=== PATIENT | female | born 1960 | race Caucasian/White ===

== ENCOUNTER 2016-12-28 09:52 | Observation (INO) | payer OTHER ==
[~2016-12-28] VITALS: Ht 160 cm; Wt 62.0 kg
[~2016-12-28 09:52] MED LIST: ACYC200C66 PO; ATOR20TA15 PO; CALC1TAB87 PO; DABR75CA PO; HYDR-3516 PO; LIDO1SOL8 SWISH-SPIT; MUCI600T PO; MULT1TAB84 PO; OMEP20CA2 PO; REST15CA PO; SCOP1PAT2 TD; TRAM0.5T PO; ZOLO50TA PO
[2016-12-28 09:57] VITALS: BP 161/98; PULSE 75; RESP 18; TEMP 97.4; O2SAT 96
[2016-12-28 10:29] LABS: AUTOMATED NEUTROPHIL # 2.7 TH/MM3 (1.8-7.7); BASOPHIL % 0.6 % (0.0-2.0); EOSINOPHIL # 0.4 TH/MM3 (0-0.4); EOSINOPHIL % 7.7 % (0.0-4.0); HEMATOCRIT 41.3 % (35.0-46.0); HEMO FLAGS DIFF FINAL; LYMPHOCYTE # 1.3 TH/MM3 (1.0-4.8); MEAN CELL VOLUME 91.9 FL (80.0-100.0); MEAN CORPUSCULAR HEMOGLOBIN 31.2 PG (27.0-34.0); MEAN CORPUSCULAR HGB CONC 33.9 % (32.0-36.0); MONO % 9.8 % (0.0-8.0); NEUT % 55.9 % (16.0-70.0); PLATELET COUNT 227 TH/MM3 (150-450); RED BLOOD COUNT 4.49 MIL/MM3 (4.00-5.30); RED CELL DISTRIBUTION WIDTH 16.2 % (11.6-17.2); WHITE BLOOD COUNT 4.9 TH/MM3 (4.0-11.0)
[2016-12-28 10:41] LABS: APTT (PATIENT) 23.9 SEC (24.3-30.1); PROTHROMBIN TIME - PATIENT 11.4 SEC (9.8-11.6)
[2016-12-28 10:48] LABS: BICARBONATE 27.4 MEQ/L (21.0-32.0); POTASSIUM 3.6 MEQ/L (3.5-5.1)
--- NOTE | 2016-12-28 11:47 | RADRPT ---
EXAM DATE/TIME: 12/28/2016 10:29 [facility] COMPARISON: CHEST SINGLE AP, October 08, 2016, 9:04. INDICATIONS : Chest pain. MEDICAL HISTORY : Carcinoma, bone. SURGICAL HISTORY : Infusaport ENCOUNTER: Initial ACUITY: 1 day PAIN SCORE: 4/10 LOCATION: Left chest FINDINGS: A single view of the chest demonstrates Soowwg-b-Cqht fractured proximally with distal fragment possi melvi projected over heart. This could be confirmed with a lateral view. No effusion. No pneumothorax. Overall heart size within normal limits. CONCLUSION: 1. Vekoka-c-Pdrv is fractured proximally and distal fragment may have embolized the heart. This is po sean visualized on this AP view. Recommend lateral view of the chest. Mild basilar atelectasis. Ady Jama MD on December 28, 2016 at 11:42 Board Certified Radiologist. This report was verified electronically.
[2016-12-28] MEDS ORDERED: TRAM0.5T PO (11:56)
[2016-12-28] MEDS ORDERED: VITA500T PO (11:59)
[2016-12-28] MEDS ORDERED: FISH100020 PO (11:59)
[2016-12-28] MEDS ORDERED: COQ-100C2 PO (12:05)
[2016-12-28] MEDS ORDERED: VITA100018 PO (12:05)
[2016-12-28] MEDS ORDERED: GUMMCHW PO (12:07)
--- NOTE | 2016-12-28 12:18 | PD ---
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 Since she first felt like she couldn't move her tongue to the left side but then felt like she had slurred speech facial droop and some unusual tingling paresthesias and pain on the left side of the face. She is worried she may have had a stroke. She's never had similar symptoms. Denies any symptoms in the arms or legs. She has no known brain metastatic disease. History Past Medical History Narrative Medical Stage IV melanoma with bony metastatic disease, on immunotherapy Menopausal: Yes Social History Alcohol Use: No Tobacco Use: No Allergies-Medications (Allergen,Severity, Reaction): Coded Allergies: Alcohol (Verified Allergy, Severe, CANT BREATHE, 09/27/16) RUBBING ALCOHOL,,DRINKS ALCOHOL WITHOUT DIFFICULTLY Cultivated Oat Pollen (Verified Allergy, Unknown, 09/27/16) Uncoded Allergies: PLAIN WATER (Allergy, Severe, SEVERE NAUSEA AND VOMITING , 08/11/11) SURGICAL TAPE (Allergy, Severe, REDNESS AND INFECTION , 08/11/11) Reported Meds & Prescriptions Reported Meds & Active Scripts Active Tafinlar (Dabrafenib) 75 Mg Cap 150 Mg PO BID 30 Days Reported Coenzyme Q10 (Ubidecarenone) 10 Mg Cap 10 Mg PO DAILY [id number] (Ascorbic Acid) 1,000 Mg Tab 1,000 Mg PO DAILY Gummi Bear Multivitamin/M (Pediatric Multiple Vitamin W/) 1 Chw Chw 1 Chew PO DAILY Vitamin D3 (Cholecalciferol) 1,000 Unit Tab 1,000 Units PO DAILY Fish Oil 1000 mg ([place]-3 Fatty Acids) 1 Cap Cap 1,000 Mg PO DAILY Mekinist (Trametinib) 0.5 Mg Tab 2 Mg PO DAILY Calcium 600 with Vitamin D (Calcium Carbonate-Cholecalciferol) 600-400 mg-Unit Tab 1 Tab PO BID Review of Systems Except as stated in HPI: all other systems reviewed are Neg Physical Exam Narrative GENERAL: Well-appearing 56 year-old woman, no acute distress. SKIN: Warm and dry. HEAD: Atraumatic. Normocephalic. NECK: Trachea midline. No JVD. CARDIOVASCULAR: Regular rate and rhythm. No murmur appreciated. RESPIRATORY: No accessory muscle use. Clear to auscultation. Breath sounds equal bilaterally. GASTROINTESTINAL: Abdomen soft, non-tender, nondistended. Hepatic and splenic margins not palpable. MUSCULOSKELETAL: No obvious deformities. No clubbing. No cyanosis. No edema. NEUROLOGICAL: Awake and alert. Cranial nerve exam reveals a little bit of left- sided facial asymmetry with flattening of the nasolabial fold and a little bit of drop in the angle of the mouth. This disappears with intentional smile. She also has maybe a little bit of weakness in pushing the left tongue and cheek , his speech being just a little bit slurred. Strength is full and equal in the upper and lower extremities. Normal. Jtkg-un-bovm. No sensory changes. PSYCHIATRIC: Appropriate mood and affect; insight and judgment normal. Data Data Last Documented VS Vital Signs Date Time Temp Pulse Resp B/P Pulse Ox O2 Delivery O2 Flow Rate FiO2 12/28/16 18:00 63 18 172/80 94 Room Air 12/28/16 09:57 97.4 Orders Electrocardiogram (12/28/16 10:02) Complete Blood Count With Diff (12/28/16 10:02) Basic Metabolic Panel (Bmp) (12/28/16 10:02) Prothrombin Time / Inr (Pt) (12/28/16 10:02) Act Partial Throm Time (Ptt) (12/28/16 10:02) Chest, Single Ap (12/28/16 10:15) Mri Brain W&W/O Contrast (12/28/16 ) Gadodiamide Pf Inj (Omniscan Pf Inj) (12/28/16 15:11) Chest, Pa & Lat (12/28/16 ) Admit Order (Ed Use Only) (12/28/16 ) Invasive Rad Dept Consult (12/28/16 ) Labs Laboratory Tests Test 12/28/16 10:14 White Blood Count 4.9 TH/MM3 Red Blood Count 4.49 MIL/MM3 Hemoglobin 14.0 GM/DL Hematocrit 41.3 % Mean Corpuscular Volume 91.9 FL Mean Corpuscular Hemoglobin 31.2 PG Mean Corpuscular Hemoglobin 33.9 % Concent Red Cell Distribution Width 16.2 % Platelet Count 227 TH/MM3 Mean Platelet Volume 8.1 FL Neutrophils (%) (Auto) 55.9 % Lymphocytes (%) (Auto) 26.0 % Monocytes (%) (Auto) 9.8 % Eosinophils (%) (Auto) 7.7 % Basophils (%) (Auto) 0.6 % Neutrophils # (Auto) 2.7 TH/MM3 Lymphocytes # (Auto) 1.3 TH/MM3 Monocytes # (Auto) 0.5 TH/MM3 Eosinophils # (Auto) 0.4 TH/MM3 Basophils # (Auto) 0.0 TH/MM3 CBC Comment DIFF FINAL Differential Comment Prothrombin Time 11.4 SEC Prothromb Time International 1.0 RATIO Ratio Activated Partial 23.9 SEC Thromboplast Time Sodium Level 140 MEQ/L Potassium Level 3.6 MEQ/L Chloride Level 104 MEQ/L Carbon Dioxide Level 27.4 MEQ/L Anion Gap 9 MEQ/L Blood Urea Nitrogen 11 MG/DL Creatinine 0.61 MG/DL Estimat Glomerular Filtration 101 ML/MIN Rate Random Glucose 126 MG/DL Calcium Level 8.9 MG/DL [facility] Medical Decision Making Medical Screen Exam Complete: Yes Emergency Medical Condition: Yes Interpretation(s) My review of EKG: Normal sinus rhythm at a rate of 70, normal axis, normal vitals, no definite evidence of acute ischemia. LABS: CBC unremarkable. BMP unremarkable. Coags unremarkable Chest x-ray: Hueqvx-r-Gtnb is fractured proximally and distal fragment may have embolized to the heart. Poorly visualized on AP view. Recommend lateral view of the chest. Differential Diagnosis Stroke, tumor, bleed, seizure, other Narrative Course Medical decision making INITIAL: Is a 56 year-old woman presents to the emergency department with strokelike symptoms and a history of metastatic melanoma concerning for tumor bleed or stroke. We'll check labs, MRI, reassess. 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 Likely responsible for her symptoms. Discussed with Dr. Bowden, he will see her in the office within one week. Also with evidence of Zfgdib-j-Fwvg fracture. There able to access the port today with, but it flush with difficulty and she had pain with flushing and so further temps were discontinued. We will get AP and lateral chest x-ray, reassess. 6:50 PM: Chest x-ray confirms that the Pvkvdg-l-Icya is fractured and the displaced distal segment appears to be in the right ventricle extending into the right ventricular outflow tract. We'll plan on admission, consult IR. Spoke with Dr. Bearden, may need to be removed. Prefer to do it when CT surgery is in house. If she is asymptomatic may consider not removing it. Spoke with Dr. Kirkpatrick, will admit patient. James Caban MD Dec 28, 2016 12:18
[2016-12-28] MEDS ORDERED: ASCO10002 PO (12:26)
[2016-12-28] MEDS ORDERED: [UNRECOGNIZED DRUG - CODE] PO (12:26)
--- NOTE | 2016-12-28 14:56 | RADRPT ---
EXAM DATE/TIME: 12/28/2016 14:10 [facility] COMPARISON: No previous studies available for comparison. INDICATIONS : Metastatic disease. History of melanoma. Left sided facial numbness/slurred speech. CONTRAST: 12 cc Omniscan (gadodiamide) IV MEDICAL HISTORY : Metastatic, bone. Hypercholesterolemia. Melanoma. SURGICAL HISTORY : None. ENCOUNTER: Initial ACUITY: 2 day PAIN SCORE: 0/10 LOCATION: head TECHNIQUE: Multiplanar, multisequence MRI of the brain was performed both prior to and following the administrat ion of paramagnetic contrast. FINDINGS: There is widespread abnormal thickening and enhancement of the leptomeninges, most severe on the left side. This does not result in a significant mass effect or midline shift. No abnormal signal on diff usion-weighted images to suggest recent infarction. There is also some involvement of the posterior f marv. The susceptibility weighted images demonstrate abnormal signal in the leptomeninges as well. There is no hydrocephalus and no abnormal extra-axial fluid collections. CONCLUSION: 1. Diffuse abnormal thickening and abnormal enhancement of the leptomeninges most characteristic of l eptomeningeal spread of melanoma, given the history of melanoma. Findings are worse on the left side and there is also involvement of the posterior fossa. No recent infarct identified. Ady Jama MD on December 28, 2016 at 14:46 Board Certified Radiologist. This report was verified electronically.
[2016-12-28 14:59] VITALS: BP 176/101; PULSE 57; RESP 21; O2SAT 95
[2016-12-28] MEDS ORDERED: GADODIAMIDE PF 287 MG/ML 5 ML VIAL (for RAD MRI) IV ONE (15:11)
[2016-12-28 17:00] VITALS: BP 145/83; PULSE 56; RESP 17; O2SAT 94
--- NOTE | 2016-12-28 17:35 | RADRPT ---
EXAM DATE/TIME: 12/28/2016 17:14 [facility] COMPARISON: CT PULMONARY ANGIOGRAM, October 10, 2016, 15:02. CHEST SINGLE AP, December 28, 2016, 10:29. CHEST PA & LAT, October 03, 2016, 8:25. INDICATIONS : Evaluate for infusaport fracture per order. MEDICAL HISTORY : Carcinoma, bone. SURGICAL HISTORY : Infusaport ENCOUNTER: Subsequent ACUITY: 1 day PAIN SCORE: 0/10 LOCATION: chest FINDINGS: The cardiac silhouette is normal in transverse diameter. The lungs are free of acute parenchymal opac ity. No effusions are identified. The fractured Ksmzfa-n-Kttr is again identified unchanged in positi on with the proximal portion in the right ventricle and the distal portion in the pulmonary outflow t ract. CONCLUSION: 1. No acute cardiopulmonary disease. 2. Fractured Riwpob-t-Imkd unchanged in position as above. Solitario Bearden MD on December 28, 2016 at 17:30 Board Certified Radiologist. This report was verified electronically.
[2016-12-28 18:00] VITALS: BP 172/80; PULSE 63; RESP 18; O2SAT 94
[2016-12-28] MEDS ORDERED: ONDANSETRON HCL 4 MG/2 ML VIAL IV ONE (18:15)
[2016-12-28] MEDS ORDERED: ONDANSETRON ODT 4 MG TAB PO ONE (18:30)
[2016-12-28 19:15] VITALS: BP 129/88; PULSE 60; RESP 18
[2016-12-28] MEDS: SODIUM CHLOR 0.45% 1000 ML INJ 1,000 ML IV SCH (20:00)
[2016-12-28] MEDS ORDERED: ONDANSETRON HCL 4 MG/2 ML VIAL IVP PRN (20:00)
[2016-12-28] MEDS ORDERED: SODIUM CHLORIDE 0.9% FLUSH 5 ML FLUSH FLUSH PRN (20:00)
[2016-12-28] MEDS ORDERED: MORPHINE SULFATE 4 MG/ML INJ IV PRN (20:00)
[2016-12-28] MEDS ORDERED: BISACODYL 10 MG SUPP PR PRN (20:00)
[2016-12-28] MEDS ORDERED: NALOXONE HCL 0.4 MG/ML AMP IV PRN (20:00)
[2016-12-28 21:00] VITALS: BP 138/92; PULSE 68
[2016-12-28] MEDS: CALCIUM/VITAMIN D 250 MG/125 U TAB PO SCH (21:00)
[2016-12-28] MEDS: SODIUM CHLORIDE 0.9% FLUSH 5 ML FLUSH FLUSH SCH ×2 (21:00→22:44)
[2016-12-28] MEDS ORDERED: DABRAFENIB PO SCH (21:00)
--- NOTE | 2016-12-28 23:08 | HHI.HP ---
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 Since she first felt like she couldn't move her tongue to the left side but then felt like she had slurred speech facial droop and some unusual tingling paresthesias and pain on the left side of the face. Patient had MRI which was consistent with melanoma spread also had chest xray which showed her port for chemo fractured and may be involving rt ventricle and will be admitted to observation with consult to interventional radiology and oncology. Review of Systems Neurologic: COMPLAINS OF: Headache, Paresthesias, Speech Problems Past Family Social History Past Medical History metastatic melanoma ,on chemotherapy Reported Medications Tafinlar (Dabrafenib) 75 Mg Cap 150 Mg PO BID 30 Days Reported Coenzyme Q10 (Ubidecarenone) 10 Mg Cap 10 Mg PO DAILY [id number] (Ascorbic Acid) 1,000 Mg Tab 1,000 Mg PO DAILY Gummi Bear Multivitamin/M (Pediatric Multiple Vitamin W/) 1 Chw Chw 1 Chew PO DAILY Vitamin D3 (Cholecalciferol) 1,000 Unit Tab 1,000 Units PO DAILY Fish Oil 1000 mg ([place]-3 Fatty Acids) 1 Cap Cap 1,000 Mg PO DAILY Mekinist (Trametinib) 0.5 Mg Tab 2 Mg PO DAILY Calcium 600 with Vitamin D (Calcium Carbonate-Cholec Allergies: Coded Allergies: Alcohol (Verified Allergy, Severe, CANT BREATHE, 09/27/16) RUBBING ALCOHOL,,DRINKS ALCOHOL WITHOUT DIFFICULTLY Cultivated Oat Pollen (Verified Allergy, Unknown, 09/27/16) Uncoded Allergies: PLAIN WATER (Allergy, Severe, SEVERE NAUSEA AND VOMITING , 08/11/11) SURGICAL TAPE (Allergy, Severe, REDNESS AND INFECTION , 08/11/11) Social History current NS,ND Physical Exam Vital Signs Vital Signs Date Time Temp Pulse Resp B/P Pulse Ox O2 Delivery O2 Flow Rate FiO2 12/28/16 19:30 Room Air 12/28/16 18:00 63 18 172/80 94 Room Air 12/28/16 17:00 56 17 145/83 94 12/28/16 14:59 57 21 176/101 95 Room Air 12/28/16 11:05 18 Room Air 12/28/16 09:57 97.4 75 18 161/98 96 Physical Exam GENERAL: This is a well-nourished, well-developed patient, in no apparent distress. SKIN: No rashes, ecchymoses or lesions. Cool and dry. HEAD: Atraumatic. Normocephalic. No temporal or scalp tenderness. EYES: Pupils equal round and reactive. Extraocular motions intact. No scleral icterus. No injection or drainage. ENT: Nose without bleeding, purulent drainage or septal hematoma. Throat without erythema, tonsillar hypertrophy or exudate. Uvula midline. Airway patent. NECK: Trachea midline. No JVD or lymphadenopathy. Supple, nontender, no meningeal signs. CARDIOVASCULAR: Regular rate and rhythm without murmurs, gallops, or rubs. RESPIRATORY: Clear to auscultation. Breath sounds equal bilaterally. No wheezes , rales, or rhonchi. GASTROINTESTINAL: Abdomen soft, non-tender, nondistended. No hepato-splenomegaly , or palpable masses. No guarding. MUSCULOSKELETAL: Extremities without clubbing, cyanosis, or edema. No joint tenderness, effusion, or edema noted. No calf tenderness. Negative Homans sign bilaterally. NEUROLOGICAL: Awake and alert. Cranial nerves II through XII intact. Motor and sensory grossly within normal limits. Five out of 5 muscle strength in all muscle groups. Normal speech. Laboratory Laboratory Tests Test 12/28/16 10:14 White Blood Count 4.9 Red Blood Count 4.49 Hemoglobin 14.0 Hematocrit 41.3 Mean Corpuscular Volume 91.9 Mean Corpuscular Hemoglobin 31.2 Mean Corpuscular Hemoglobin 33.9 Concent Red Cell Distribution Width 16.2 Platelet Count 227 Mean Platelet Volume 8.1 Neutrophils (%) (Auto) 55.9 Lymphocytes (%) (Auto) 26.0 Monocytes (%) (Auto) 9.8 Eosinophils (%) (Auto) 7.7 Basophils (%) (Auto) 0.6 Neutrophils # (Auto) 2.7 Lymphocytes # (Auto) 1.3 Monocytes # (Auto) 0.5 Eosinophils # (Auto) 0.4 Basophils # (Auto) 0.0 CBC Comment DIFF FINAL Differential Comment Prothrombin Time 11.4 Prothromb Time International 1.0 Ratio Activated Partial 23.9 Thromboplast Time Sodium Level 140 Potassium Level 3.6 Chloride Level 104 Carbon Dioxide Level 27.4 Anion Gap 9 Blood Urea Nitrogen 11 Creatinine 0.61 Estimat Glomerular Filtration 101 Rate Random Glucose 126 Calcium Level 8.9 Result Diagram: 12/28/16 1014 12/28/16 1014 Imaging Last 24 hours Impressions Chest X-Ray 12/28/16 1015 Signed Impressions: Service Date/Time: Wednesday, December 28, 2016 10:29 - CONCLUSION: 1. Znvqlr-e-Zzkc is fractured proximally and distal fragment may have embolized the heart. This is poorly visualized on this AP view. Recommend lateral view of the chest. Mild basilar atelectasis. Ady Jama MD Chest X-Ray 12/28/16 0000 Signed Impressions: Service Date/Time: Wednesday, December 28, 2016 17:14 - CONCLUSION: 1. No acute cardiopulmonary disease. 2. Fractured Aludip-h-Yudo unchanged in position as above. Solitario Bearden MD Brain MRI 12/28/16 0000 Signed Impressions: Service Date/Time: Wednesday, December 28, 2016 14:10 - CONCLUSION: 1. 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 Findings are worse on the left side and there is also involvement of the posterior fossa. No recent infarct identified. 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 Likely responsible for her symptoms. Discussed with Dr. Bowden, he will see her in the office within one week. Also with evidence of Oxfwea-l-Tpoz fracture. There able to access the port today with, but it flush with difficulty and she had pain with flushing and so further temps were discontinued. 6:50 PM: Chest x-ray confirms that the Wfiftv-c-Bnlu is fractured and the displaced distal segment appears to be in the right ventricle extending into the right ventricular outflow tract. W Consult IR. ER Spoke with Dr. Bearden , may need to be removed. Prefer to do it when CT surgery is in house. If she is asymptomatic may consider not removing it. Code Status full Discussed Condition With patient Zac Kirkpatrick MD Dec 28, 2016 23:08
[2016-12-29] VITALS (7 sets, daily range): BP systolic 142–181; BP diastolic 78–99; PULSE 58–102; RESP 14–18; TEMP 97.4–98.7; O2SAT 94–99
[2016-12-29] MEDS ORDERED: TRAMETINIB PO SCH (09:00)
[2016-12-29] MEDS: CALCIUM/VITAMIN D 250 MG/125 U TAB PO SCH ×2 (09:00→23:41)
[2016-12-29] MEDS: ASCORBIC ACID 500 MG TAB PO SCH (09:00)
[2016-12-29] MEDS ORDERED: COENZYME Q10 10 MG PO SCH (09:00)
[2016-12-29] MEDS: CHOLECALCIFEROL (VIT D3) 1000 UNIT TAB PO SCH (09:00)
[2016-12-29] MEDS ORDERED: [UNRECOGNIZED DRUG - OTHER] PO SCH (09:00)
[2016-12-29] MEDS ORDERED: NON-FORMULARY DRUG (Omega-3 Fatty Acids (Fish Oil 1000 mg) 1,000 MG) PO SCH (09:00)
[2016-12-29] MEDS: SODIUM CHLOR 0.45% 1000 ML INJ 1,000 ML IV SCH ×2 (09:20→22:40)
[2016-12-29] MEDS: SODIUM CHLORIDE 0.9% FLUSH 5 ML FLUSH FLUSH SCH ×2 (09:46→21:00)
--- NOTE | 2016-12-29 11:19 | HHI.PR ---
Subjective Remarks Pt presented with c/o left sided facial abnormalities. MRI brain (12/29/16) leptomeningeal spread of melanoma. XR showed fractured port with distal fractured piece in right heart outflow tract. Pt denies chest pain or palpitations. Objective Vitals Vital Signs Date Time Temp Pulse Resp B/P Pulse Ox O2 Delivery O2 Flow Rate FiO2 12/29/16 07:38 97.4 71 16 162/97 96 12/29/16 05:16 102 18 146/78 99 Room Air 12/29/16 03:52 58 18 158/78 94 Room Air 12/29/16 00:50 89 18 156/99 95 Room Air 12/28/16 21:00 68 138/92 Room Air 12/28/16 19:30 Room Air 12/28/16 19:15 60 18 129/88 Room Air 12/28/16 18:00 63 18 172/80 94 Room Air 12/28/16 17:00 56 17 145/83 94 12/28/16 14:59 57 21 176/101 95 Room Air 12/28/16 12/28/16 12/29/16 14:59 22:59 06:59 Intake Total 240 ml Balance 240 ml Intake Oral 240 ml # Voids 1 Result Diagram: 12/28/16 1014 12/28/16 1014 Imaging Last Impressions Chest X-Ray 12/28/16 1015 Signed Impressions: Service Date/Time: Wednesday, December 28, 2016 10:29 - CONCLUSION: 1. Xqbcwq-s-Zfsu is fractured proximally and distal fragment may have embolized the heart. This is poorly visualized on this AP view. Recommend lateral view of the chest. Mild basilar atelectasis. Ady Jama MD Brain MRI 12/28/16 0000 Signed Impressions: Service Date/Time: Wednesday, December 28, 2016 14:10 - CONCLUSION: 1. 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 Findings are worse on the left side and there is also involvement of the posterior fossa. No recent infarct identified. Ady Jama MD Objective Remarks GENERAL: This is a well-nourished, well-developed patient, in no apparent distress. CARDIOVASCULAR: Regular rate and rhythm without murmurs, gallops, or rubs. RESPIRATORY: Clear to auscultation. Breath sounds equal bilaterally. No wheezes , rales, or rhonchi. GASTROINTESTINAL: Abdomen soft, non-tender, nondistended. Normal active bowel sounds MUSCULOSKELETAL: Extremities without clubbing, cyanosis, or edema. NEURO: Alert & Oriented x4 to person, place, time, situation. Moves all ext x4 A/P Problem List: (1) Metastatic melanoma Status: Chronic Plan: - MRI brain (12/28/16) --> leptomeningeal spread of melanoma - consult placed to Oncology - will d/w Dr. Joy (2) Displacement of infusion catheter Status: Acute Plan: - distal portion of the infusaport is fractured in located in the right heart outflow tract - I reviewed the pt's telemetry which showed only 1 episode of NSVT overnight, otherwise occasional PVC, predominant rhythm was NSR - will ask Cardiology to Consult - Dr. Pacheco and I have reviewed the case and given pt's advanced metastatic melanoma and lack of findings on telemetry, pt would NOT benefit from risk of trying to retrieve fractured section of her infusaport Problem Qualifiers (1) Displacement of infusion catheter: Qualified Code: T82.524A - Displacement of infusion catheter, initial encounter Jordan Sommer DO Dec 29, 2016 11:19
--- NOTE | 2016-12-29 12:31 | MB ---
cc: JEYSON ANGLIN DATE OF CONSULTATION 12/29/2016 INDICATION Right ventricular mass. HISTORY OF PRESENT ILLNESS A 56-year-old female with advanced Stage IV metastatic melanoma. She has been undergoing chemotherapy, has a left subclavian Joaipa-T-Ozpu. She presented with symptoms of slurred speech and unusual paresthesias on the left side of her face. MRI of the brain did show melanoma spread. She also had an x-ray at that point which showed that her Proymt-K-Ltad had fractured and the port was now in the right ventricular outflow tract. Symptomatically she has not had any heart related complaints. No palpitations, chest pain or shortness of breath. We are consulted for further recommendations. PAST MEDICAL HISTORY Metastatic melanoma on chemotherapy. REPORTED MEDICATIONS See med reconciliation. ALLERGIES Alcohol. [place] pollen. SOCIAL HISTORY Jhony any alcohol, tobacco or drug use. FAMILY HISTORY Denies any family history of early coronary artery disease or sudden cardiac . REVIEW OF SYSTEMS A 12-point review of systems is performed. Negative unless otherwise noted in the History Of Present Illness. PHYSICAL EXAMINATION Vital Signs: Temperature 97, pulse 71, blood pressure 162/97 mmHg. General: Alert and oriented x 3, in no acute distress. HEENT: Exam shows pupils reactive to light and accommodation. Extraocular movements are intact. NECK: No elevation or jugular venous distention. No thyromegaly or lymphadenopathy. No carotid bruits. Lungs: Clear to auscultation bilaterally. Cardiovascular Exam: Regular rate and rhythm without murmurs, rubs or gallops. Abdominal Exam: Nontender, nondistended. Good bowel sounds. No hepatosplenomegaly. Extremities: No clubbing, cyanosis or edema. Good peripheral pulses. Neuro: Cranial nerves intact. Motor and sensory grossly intact. LABORATORY DATA Sodium 140, potassium 3.6, BUN is 11, creatinine 0.61, INR is 1. WBC 4.9, hemoglobin 14, platelet count 227. ASSESSMENT 1. Metastatic melanoma. 2. Fractured Sqqbfp-A-Orrg with catheter embolism to the right ventricular outflow tract. 3. Nonsustained ventricular tachycardia. PLAN The patient has advanced metastatic melanoma on chemotherapy. We will wait for any further recommendations from Oncology given the progression. From a cardiac perspective, the Kvihhv-V-Cvaw catheter appears to be partially in the right ventricular outflow tract. The patient is in sinus rhythm, does have on telemetry infrequent ventricular ectopy consisting of couplets, triplets and one short nonsustained run of NSVT, about six beats. Options would include snare and recovery of the Lessvz-Q-Afci versus just watching conservatively. Since there is not much in terms of an arrhythmia burden and given the invasive nature and risks associated with snare recovery, after discussion with Dr. Montemayor, I think it would be best to monitor conservatively. If she has as any further, more considerable runs of ectopy, then we may need to attempt recovery. The Ngwlfz-O-Qnxg is still required. It will have to be exchanged per Interventional Radiology. MD SURYA Rolle/SSB /12:02 PM /12:18 PM
[2016-12-29] MEDS ORDERED: ceFAZolin 2 GM PREMIX 50 ML IV SCH (14:45)
[2016-12-29] MEDS ORDERED: VANCOMYCIN INJ 1,000 MG in SODIUM CHLOR 0.9% 250 ML INJ 250 ML IV SCH (14:45)
[2016-12-30] VITALS (7 sets, daily range): BP systolic 131–153; BP diastolic 80–97; PULSE 63–82; RESP 16–21; TEMP 97–98; O2SAT 93–99
--- NOTE | 2016-12-30 07:13 | EKG ---
Date Performed: 12/28/2016 Time Performed: 10:07:50 PTAGE: 56 years EKG: Sinus rhythm INCOMPLETE RIGHT BUNDLE BRANCH BLOCK BORDERLINE ECG INTERPRETATION BASED ON A DEFAULT AGE OF 38 YEAR S PREVIOUS TRACING : 09/27/2016 17.22 Compared to prior tracing no significant change DOCTOR: Stewart Rivera Interpretating Date/Time 12/30/2016 07:10:17
[2016-12-30] MEDS: CHOLECALCIFEROL (VIT D3) 1000 UNIT TAB PO SCH (09:00)
[2016-12-30] MEDS: SODIUM CHLORIDE 0.9% FLUSH 5 ML FLUSH FLUSH SCH (09:00)
[2016-12-30] MEDS: ASCORBIC ACID 500 MG TAB PO SCH (09:00)
[2016-12-30] MEDS: CALCIUM/VITAMIN D 250 MG/125 U TAB PO SCH (09:00)
--- NOTE | 2016-12-30 09:30 | HHI.PR ---
Subjective Remarks Pt without any specific complaints and is anxious for discharge. Pt still having nausea She is going for port exchange this morning. She does not seem to remember being told about the results of her MRI brain and doesn't seem to fully understand the extend of her metastatic disease. NSR on telemetry overnight. Objective Vitals Vital Signs Date Time Temp Pulse Resp B/P Pulse Ox O2 Delivery O2 Flow Rate FiO2 12/30/16 08:02 97.0 74 18 152/85 94 12/30/16 04:00 98.0 70 21 140/91 98 12/29/16 20:35 98.7 87 18 142/88 98 12/29/16 19:59 61 18 146/93 94 12/29/16 17:44 68 14 181/98 98 Room Air Result Diagram: 12/28/16 1014 12/28/16 1014 Other Results Laboratory Tests Test 12/28/16 10:14 White Blood Count 4.9 TH/MM3 Red Blood Count 4.49 MIL/MM3 Hemoglobin 14.0 GM/DL Hematocrit 41.3 % Mean Corpuscular Volume 91.9 FL Mean Corpuscular Hemoglobin 31.2 PG Mean Corpuscular Hemoglobin 33.9 % Concent Red Cell Distribution Width 16.2 % Platelet Count 227 TH/MM3 Mean Platelet Volume 8.1 FL Neutrophils (%) (Auto) 55.9 % Lymphocytes (%) (Auto) 26.0 % Monocytes (%) (Auto) 9.8 % Eosinophils (%) (Auto) 7.7 % Basophils (%) (Auto) 0.6 % Neutrophils # (Auto) 2.7 TH/MM3 Lymphocytes # (Auto) 1.3 TH/MM3 Monocytes # (Auto) 0.5 TH/MM3 Eosinophils # (Auto) 0.4 TH/MM3 Basophils # (Auto) 0.0 TH/MM3 CBC Comment DIFF FINAL Differential Comment Prothrombin Time 11.4 SEC Prothromb Time International 1.0 RATIO Ratio Activated Partial 23.9 SEC Thromboplast Time Sodium Level 140 MEQ/L Potassium Level 3.6 MEQ/L Chloride Level 104 MEQ/L Carbon Dioxide Level 27.4 MEQ/L Anion Gap 9 MEQ/L Blood Urea Nitrogen 11 MG/DL Creatinine 0.61 MG/DL Estimat Glomerular Filtration 101 ML/MIN Rate Random Glucose 126 MG/DL Calcium Level 8.9 MG/DL Imaging Last Impressions Chest X-Ray 12/28/16 1015 Signed Impressions: Service Date/Time: Wednesday, December 28, 2016 10:29 - CONCLUSION: 1. Vctazz-l-Mivm is fractured proximally and distal fragment may have embolized the heart. This is poorly visualized on this AP view. Recommend lateral view of the chest. Mild basilar atelectasis. Ady Jama MD Brain MRI 12/28/16 0000 Signed Impressions: Service Date/Time: Wednesday, December 28, 2016 14:10 - CONCLUSION: 1. 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 Findings are worse on the left side and there is also involvement of the posterior fossa. No recent infarct identified. Ady Jama MD Objective Remarks General: NAD, AAOx3 Chest: CTA bilaterally Cardiac: Regular Abd: +BS, soft ND/NT Ext: No edema A/P Problem List: (1) Metastatic melanoma Status: Chronic Plan: - Pt has metastatic melanoma stage 4 with mets to bone, liver, lung, soft tissues - Pt admitted with left sided headache, nausea/vomiting. 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 Findings are worse on the left side and there is also involvement of the posterior fossa. - Appreciate Oncology consultation - Pt to have Yizzlj-z-gweo exchanged today by IR - Anticipate discharge to home later today as long as pt is stable after her port exchange. (2) Displacement of infusion catheter Status: Acute Plan: - distal portion of the cqthww-z-ghjz is fractured in located in the right heart outflow tract - Pt's telemetry showed only 1 episode of NSVT overnight on 12/29/16, otherwise occasional PVC, predominant rhythm was NSR - Appreciate Cardiology consultation - Dr. Pacheco and reviewed the case with Dr. Sommer on 12/29/16 and given pt's advanced metastatic melanoma and lack of findings on telemetry, pt would NOT benefit from risk of trying to retrieve fractured section of her lzusap-q-odlk Assessment and Plan Patient examined. Assessment and plan formulated with Kristin Cain PA-C. I agree with the above. Problem Qualifiers (1) Displacement of infusion catheter: Qualified Code: T82.524A - Displacement of infusion catheter, initial encounter Kristin Cain Dec 30, 2016 09:30 Jordan Sommer DO Jan 04, 2017 18:33
[2016-12-30] MEDS ORDERED: ZOFR4TAB3 SL (09:31)
--- NOTE | 2016-12-30 09:32 | HHI.DCPOC ---
Discharge Care Plan Diagnosis: (1) Metastatic melanoma (2) Displacement of infusion catheter (3) Nausea & vomiting Goals to Promote Your Health * To prevent worsening of your condition and complications * To maintain your health at the optimal level Directions to Meet Your Goals Take your medications as prescribed Follow your dietary instruction Follow activity as directed Keep your appointments as scheduled Take your immunizations and boosters as scheduled If your symptoms worsen call your PCP, if no PCP go to Urgent Care Center or Emergency Room Smoking is Dangerous to Your Health. Avoid second hand smoke Call the 24-hour hour crisis hotline for domestic abuse at Kristin Cain Dec 30, 2016 09:32 Jordan Sommer DO Jan 04, 2017 18:34
[2016-12-30] MEDS ORDERED: MIDAZOLAM HCL 5 MG/5 ML VIAL ONE (09:33)
[2016-12-30] MEDS ORDERED: fentaNYL CITRATE 250 MCG/5 ML AMP ONE (09:34)
[2016-12-30] MEDS ORDERED: LIDOCAINE 1%/EPINEPHrine 1:100,000 SOLN 20 ML VIAL ONE ×2 (10:06→10:27)
--- NOTE | 2016-12-30 10:12 | HHI.FF ---
Face to Face Verification Diagnosis: (1) Metastatic melanoma (2) Nausea & vomiting (3) Displacement of infusion catheter Home Health Nursing Order: Medical education Signs/symptoms of disease process Medication education-adverse effect Wound care and dressing changes Nursing assessment with vital signs I have seen patient Cherry Corcoran on 12/30/16. My clinical findings support the need for the requested home health care services because: Deconditioned w/ increased weakness Med compliance is questionable Limited ability to care for self Need for psychosocial assistance I certify that my clinical findings support that this patient is homebound because: Impaired cognitive ability/safety Unsafe to leave home unassisted Need for psychosocial assistance Unable to use public transportation Jordan Sommer DO Dec 30, 2016 10:12
--- NOTE | 2016-12-30 10:25 | HHI.PR ---
Subjective Remarks No new complaints. Objective Vitals Vital Signs Date Time Temp Pulse Resp B/P Pulse Ox O2 Delivery O2 Flow Rate FiO2 12/30/16 08:02 97.0 74 18 152/85 94 12/30/16 04:00 98.0 70 21 140/91 98 12/29/16 20:35 98.7 87 18 142/88 98 12/29/16 19:59 61 18 146/93 94 12/29/16 17:44 68 14 181/98 98 Room Air Result Diagram: 12/28/16 1014 12/28/16 1014 Imaging Last Impressions Chest X-Ray 12/28/16 1015 Signed Impressions: Service Date/Time: Wednesday, December 28, 2016 10:29 - CONCLUSION: 1. Qujfnr-p-Xicv is fractured proximally and distal fragment may have embolized the heart. This is poorly visualized on this AP view. Recommend lateral view of the chest. Mild basilar atelectasis. Ady Jama MD Brain MRI 12/28/16 0000 Signed Impressions: Service Date/Time: Wednesday, December 28, 2016 14:10 - CONCLUSION: 1. 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 Findings are worse on the left side and there is also involvement of the posterior fossa. No recent infarct identified. Ady Jama MD Objective Remarks General: NAD, AAOx3 Chest: CTA bilaterally Cardiac: Regular Abd: +BS, soft ND/NT Ext: No edema A/P Problem List: (1) Metastatic melanoma Status: Chronic Plan: - comgmt with [place] - Pt has metastatic melanoma stage 4 with mets to bone, liver, lung, soft tissues - Pt admitted with left sided headache, nausea/vomiting. 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 Findings are worse on the left side and there is also involvement of the posterior fossa. - Pt underwent infusaport exhanged with IR (12/30/16) - Discharge to home this afternoon - f/u with Oncology in 1 week - Pt's overall prognosis is guarded - Pt does NOT have good insight into her disease process - Pt does NOT want SNF - I have requested that case mgmt arrange [facility] (2) Displacement of infusion catheter Status: Acute Plan: - distal portion of the lbxbbk-c-qibh is fractured in located in the right heart outflow tract - Pt's telemetry showed only 1 episode of NSVT overnight on 12/29/16, otherwise occasional PVC, predominant rhythm was NSR - Appreciate Cardiology consultation - I reviewed the case with Dr. Sommer on 12/29/16 and given pt's advanced metastatic melanoma and lack of findings on telemetry, pt would NOT benefit from risk of trying to retrieve fractured section of her jjcphc-x-zuyn Problem Qualifiers (1) Displacement of infusion catheter: Qualified Code: T82.524A - Displacement of infusion catheter, initial encounter Jrodan Sommer DO Dec 30, 2016 10:25
--- NOTE | 2016-12-30 11:31 | RADRPT ---
EXAM DATE/TIME: 12/30/2016 00:00 [facility] COMPARISON: No previous studies available for comparison. INDICATIONS : Patient presents with fractured port placement in need of removal with replacement for chemotherapy. MEDICAL HISTORY : metastatic melanoma ,on chemotherapy GERD SURGICAL HISTORY : Breast implants D and C x2 ENCOUNTER: Initial ACUITY: 2 days PAIN SCORE: 0/10 LOCATION: N/A SEDATION TIME: 45 minutes 1.) 4 mg midazolam (Versed) IV 2.) 250 mcg fentanyl (Sublimaze) IV Prophylactic antibiotics were administered with appropriate pre-procedure timing. Vancomycin within 2 hrs of procedure, Ancef (or alternative) within 1 hr of procedure. PROCEDURE : 1. Removal of Wvgpll-i-cyne. 2. Conscious sedation with continuous EKG and oximetry monitoring. The risk, benefits and potential complications of Dmngfl-t-Rmxj removal were discussed. Written conse nt was obtained. The patient was placed supine. The chest wall was prepped in sterile fashion. Full sterile techniqu e was used, including cap, mask, sterile gloves and gown, and a large sterile sheet. Hand hygiene an d 2% chlorhexidine and/or Betadine/alcohol prep was utilized per protocol for cutaneous antisepsis. The skin and subcutaneous tissues were infiltrated with local anesthetic solution. A small incision w as made, the subcutaneous pocket was opened. The port was dissected from the subcutaneous tissues and easily removed in one piece. The pocket incision was closed with subcuticular Vicryl suture. Steri -Strips were applied. Conscious sedation was performed with the prescribed dosages and duration as above. The patient tole rated the procedure well and there were no complications. EKG and oximetry remained stable throughou t the procedure. The patient was sent to post anesthesia recovery in stable condition. CONCLUSION: Uncomplicated port removal as above. Solitario Bearden MD on December 30, 2016 at 11:30 Board Certified Radiologist. This report was verified electronically.
--- NOTE | 2016-12-30 11:33 | RADRPT ---
EXAM DATE/TIME: 12/30/2016 09:58 [facility] COMPARISON: No previous studies available for comparison. INDICATIONS : Patient presents with fractured port placement in need of removal with replacement for chemotherapy t reatment.. MEDICAL HISTORY : metastatic melanoma ,on chemotherapy GERD SURGICAL HISTORY : D and C x2 Breast implants Melanoma removed ENCOUNTER: Initial ACUITY: 2 days PAIN SCORE: 0/10 LOCATION: N/A FLUORO TIME: 0.6 minutes SEDATION TIME: 45 minutes ACCESS: Right internal jugular vein SEDATION: 1.) 4 mg midazolam (Versed) IV 2.) 250 mg fentanyl (Sublimaze) IV Prophylactic antibiotics were administered with appropriate pre-procedure timing. Vancomycin within 2 hours of procedure, Ancef (or alternative) within 1 hour of procedure. DEVICE: 1. 8 [place] single lumen Bard Power Port PROCEDURE : 1. Continuous pulse oximetry and EKG monitoring. 2. Intravenous conscious sedation. 3. Ultrasound guidance for venous access. 4. Fluoroscopic guided implantable central venous port placement. The patient was placed supine. The neck was prepped in sterile fashion. Full sterile technique was u sed, including cap, mask, sterile gloves and gown, and a large sterile sheet. Hand hygiene and 2% ch lorhexidine Betadine was utilized per protocol for cutaneous antisepsis with appropriate dry time for site. The skin and subcutaneous tissues were infiltrated with local anesthetic solution. Under direct ultrasound guidance, central venous access was accomplished in the targeted vessel. The ultrasound images depicting access guidance were stored and saved to PACS for permanent record. A s ubcutaneous pocket was created using blunt dissection. The port was introduced to the pocket. The c atheter tubing was fed through a subcutaneous tunnel to the venotomy site. The catheter tubing was c ut to a suitable length and then was introduced through a valved Peel-Away sheath and positioned with catheter tubing tip at the cavo-atrial junction level. The pocket incision was closed with subcutic ular Vicryl suture. Steri-Strips were applied. The port was flushed and locked with heparin solutio n per protocol. Sterile dressing was applied to the site. The patient tolerated the procedure well. Conscious sedation was performed with the prescribed dosages and duration as above. The patient mariaa ated the procedure well and there were no complications. EKG and oximetry remained stable throughout the procedure. The patient was sent to post anesthesia recovery in stable condition. CONCLUSION: Uncomplicated ultrasound and fluoroscopic guided implanted central venous port catheter placement as described in detail above. An 8 [place] Power port was placed. The previously fractured Nixavg-w-Ltbk is noted to be within the right ventricle and out flow tract. No attempt was made of removal. Solitario Bearden MD on December 30, 2016 at 11:31 Board Certified Radiologist. This report was verified electronically.
--- NOTE | 2016-12-30 11:40 | PD.RAD ---
Post Procedure Progress Note Pre Procedure Diagnosis: (1) Metastatic melanoma Post Procedure Diagnosis: (1) Metastatic melanoma Procedure Date: Dec 30, 2016 Supervising Radiologist: Solitario Bearden Proceduralist/Assist: Real Coleman, RT(R), Lena Baltazar RT(R)(CV) Plan of Activity Patient to Unit: Nursing Unit Patient Condition: Good See PACS Report for procedural detail/treatment Central Venous Access Device Procedure 1 Right Internal Jugular Infusaport Placement single lumen Procedure 2 Left Subclavian Infusaport Removal single lumen Solitario Bearden MD Dec 30, 2016 11:40
[2016-12-30] MEDS ORDERED: SODIUM CHLORIDE 0.9% FLUSH 5 ML FLUSH IVF PRN (11:45)
[2016-12-30] MEDS: SODIUM CHLOR 0.45% 1000 ML INJ 1,000 ML IV SCH (12:00)
[2016-12-30] MEDS ORDERED: diphenhydrAMINE HCL 50 MG/ML VIAL ONE (12:27)
--- NOTE | 2017-01-02 12:38 | MB ---
cc: FABIANO CAMACHO M.D. DATE OF CONSULTATION: 01/02/2017 1958 REASON FOR CONSULTATION Initially was a stroke alert but that was likely rescinded due to what appeared to be a patient having active seizure, given Ativan and will be loaded with Dilantin. The patient with a known history of stage IV melanoma with bony mets as well as liver and lung and soft tissue. 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 Apparently, today started having change in mental status, unresponsiveness, was brought in with a right gaze preference, some shaking. Gaze preference is no longer there. She was recently in the radiology department for a port change. She had a right internal jugular Yrvlfv-T-Pnvw placed and the left one removed, this was on December 30. PAST MEDICAL HISTORY As stated. MEDICATION Home medicines: Please refer to EMR, I believe she is on: 1. Tafinlar 75 mg tabs, 150 mg twice a day. 2. She is on Co-Q10. 3. Ascorbic acid. 4. Vitamin D3. 5. Multivitamins. 6. Fish oil. 7. Trametinib 0.5 mg 2 mg daily. 8. Calcium. ALLERGIES RUBBING ALCOHOL, OAT POLLEN, SURGICAL TAPE ___. SOCIAL HISTORY Does not smoke, does not drink. PHYSICAL EXAMINATION VITAL SIGNS: Temperature not taken but pulse is 70, respiratory rate 24. Blood pressure 157/81, sating 96% on 3 liters. NEURO: She is somnolent, making some grunting noises, had a right gaze preference initially, no longer having a gaze preference. Her pupils are midline 2-3 mm reactive. No nystagmus. She does withdraw to painful stimuli in all four extremities, both toes are upgoing. Reflexes are brisk. Does not follow commands. Cannot assess cerebellar or gait. LABORATORY DATA Labs were reviewed. Some are still pending as far as her electrolytes. CBC is really unremarkable. Coag panel PTT 23.9. Urine sent off. IMAGING STUDIES CT head performed without contrast compared to an MRI with and without from 12/28/2016 shows scattered hyperdense foci throughout the left cerebral hemisphere and right occipital region which likely represents previously described leptomeningeal metastatic disease. There is nothing new seen by the radiologist, no shift or bleed. 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 The patient is loaded now with Dilantin 1000 mg. We will continue her Dilantin 100 mg q. 8, check a level, keep her level closer to 15. Maintain seizure precautions. Ativan to be used p.r.n. for witnessed seizure. Will get an EEG and continue current care. I am not sure if her oncologist wants to do any other testing, will defer to oncology. Of note, the patient was not a stroke alert. MD RAMBO Issa/LEO /11:27 AM /12:16 PM
--- NOTE | 2017-01-17 11:12 | MB ---
cc: CJ ROBERT MD DATE OF CONSULTATION 12/29/16 1958 REASON FOR CONSULTATION Patient with metastatic melanoma currently undergoing immunotherapy who presents with new-onset neurological symptoms. CHIEF COMPLAINT Slurred speech and paresthesias on the left side of face. HISTORY OF PRESENT ILLNESS Ms. 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 She has BRAF V600 positive disease. She is currently being treated with Trametinib and Dabrafenib for metastatic melanoma. Based on the most recent PET CT scan, she had good response to the treatment. She recently had disruption of her treatment since she ran out of her medication and had delay in getting a refill. She presents to the emergency department with a [id number] day history of left facial tingling and also difficulty with speech. In the emergency department, an MRI of the brain with contrast was obtained which shows widespread abnormal thickening and enhancement of the leptomeninges. It is more severe on the left side of the brain. There is no mass effect or midline shift. There is also involvement of the posterior fossa. There is a normal signal in the leptomeninges. 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 The patient was admitted to the hospital. She has had chest x-ray which showed a fractured port with distal fracture piece in the right heard outflow tract. She is currently symptomatic from this. Cardiology has seen the patient and they have been recommended conservative management. The patient is currently asymptomatic. She is in sinus rhythm. She does have infrequent ventricular ectopy. I have been consulted to make recommendations in this patient with progressive metastatic melanoma The patient is currently alert and oriented. She does not endorse any new symptoms. She states that the tingling in her left face has resolved. Her speech is clear. She is alert and oriented x3. She does not have any neurological deficits. Her ECOG performance status is in zero. REVIEW OF SYSTEMS A comprehensive 14-point review of systems was completed which is negative except as described in the HPI. PAST MEDICAL HISTORY History of metastatic melanoma. SOCIAL HISTORY She is a nonsmoker. She does not drink alcohol. She lives alone. FAMILY HISTORY Reviewed and it is noncontributory to this admission. MEDICATIONS Reviewed MEDICATIONS Home medications include 1. CoQ 10. 2. Multivitamin 3. Vitamin D3 4. Fish oil 5. Trametinib 6. Dabrafenib ALLERGIES RUBBING ALCOHOL SURGICAL TAPE PHYSICAL EXAMINATION VITAL SIGNS: Blood pressure is 142/88, pulse is in the 80s, temperature 98.7, O2 sats are 98% on room air. GENERAL: Well-developed, well-nourished female in no apparent distress. HEENT: Pupils are equal, round, reactive to light. EOMI. No oral thrush. No oral lesions. NECK: Supple. No JVD, no bruits. No lymphadenopathy. CHEST: Clear to auscultation bilaterally. CARDIAC: S1-S2 regular rate and rhythm. ABDOMEN: Soft, nontender, nondistended. Bowel sounds are present. EXTREMITIES: Without any edema, erythema or cyanosis. SKIN: Without any petechiae, lesion or bruises. NEUROLOGIC: No focal deficits. PSYCHIATRIC: Mood and affect is appropriate. IMAGING STUDIES Imaging was reviewed in the EMR. LABORATORY DATA WBC 4.9, hemoglobin is 14, platelet count is 227. Serum chemistries showed sodium of 140, potassium 3.6, chloride 104, CO2 27.4, BUN is 11, creatinine is 0.61, GFR is 101, glucose is 126. Coags show PT 11.4, INR is 1.0, PTT 23.9. ASSESSMENT/PLAN This is a 56-year-old female with a diagnosis of stage IV melanoma which is the BRAF V600 positive. She is currently on oral biochemical therapy consisting off Dabrafenib and Trametinib. She presents today with new neurological symptoms. 1. 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 This is a poor prognostic seizure in this patient with stage IV melanoma. I had a long conversation with the patient. She is essentially failing BRAF inhibitor therapy at this point. Her performance status is still very good and we will treat her with a second-line therapy in the outpatient setting. She will be treated with immunotherapy drugs as an outpatient. I will discuss this case with radiation oncology, although I believe that the benefit of radiation in this patient with leptomeningeal spread without any significant neurological symptoms is questionable. She has a fractured port and the port is now in the right ventricular outflow tract. Cardiology has recommended conservative management since trying to retrieve the port with a snare, maybe some risky in this patient. She is currently asymptomatic thus I agree with conservative management at this time. She will need a port to receive immunotherapy. We will ask IR to retrieve her current port and replaced with a new port. In order to reassess her disease, I will also obtain a CT of the chest, abdomen and pelvis with contrast. The patient can be discharged home after she has a new port placed and CT imaging has been completed. Thank you for allowing me to participate in the care of this patient. I will continue to follow this patient along. MD ROSA Morris/ /9:05 PM /11:05 AM
== END 2016-12-30 15:01 | disposition home or self-care (01) ==
LOC: NEPE 09:52 → NEDA 18:08 → NEDH 22:13 → NEPGCP 12-29 20:20
PROVIDERS: ADMIT Hospitalist; ATTEND Hospitalist
DX: C78.7 Secondary malignant neoplasm of liver and intrahepatic bile duct (principal); C79.51 Secondary malignant neoplasm of bone; C43.9 Malignant melanoma of skin, unspecified; R56.9 Unspecified convulsions; I47.2 Ventricular tachycardia; I49.3 Ventricular premature depolarization; J98.11 Atelectasis; Z98.82 Breast implant status
CPT/HCPCS: 36561; 36590; 70553; 71010; 71020; 76937; 77001; 80048; 85025; 85610; 85730; 93005; 99152; 99153; 99285; A9579; C1788; G0378; J0690; J1200; J1642; J2250; J2270; J2405; J3010; J3370; J7050

== ENCOUNTER 2017-01-02 10:34 | Inpatient (IN) | payer OTHER ==
[2017-01-02] VITALS (10 sets, daily range): BP systolic 125–183; BP diastolic 62–94; PULSE 70–102; RESP 18–24; O2SAT 94–100
[~2017-01-02 10:34] MED LIST changes: -ACYC200C66 PO; +ASCO10002 PO; -ATOR20TA15 PO; +FISH100020 PO; +GUMMCHW PO; -HYDR-3516 PO; -LIDO1SOL8 SWISH-SPIT; -MUCI600T PO; -MULT1TAB84 PO; -OMEP20CA2 PO; -REST15CA PO; -SCOP1PAT2 TD; +VITA100018 PO; +ZOFR4TAB3 SL; -ZOLO50TA PO; +[UNRECOGNIZED DRUG - CODE] PO
[2017-01-02] MEDS ORDERED: SODIUM CHLOR 0.9% 1000 ML INJ 1,000 ML IV ONE (10:41)
[2017-01-02] MEDS ORDERED: SODIUM CHLORIDE 0.9% FLUSH 5 ML FLUSH IVF PRN (10:45)
[2017-01-02] MEDS ORDERED: LORazepam 2 MG/ML VIAL IVS ONE (10:45)
[2017-01-02] MEDS ORDERED: PHENYTOIN INJ 1,000 MG in SODIUM CHLORIDE 0.9% INJ 100 ML IV ONE (10:45)
[2017-01-02 11:01] LABS: I-STAT POTASSIUM 3.5 MMOL/L (3.5-4.9); I-STAT SODIUM 139 MMOL/L (138-146)
[2017-01-02 11:04] LABS: AUTOMATED NEUTROPHIL # 7.1 TH/MM3 (1.8-7.7); BASOPHIL % 0.2 % (0.0-2.0); EOSINOPHIL # 0.1 TH/MM3 (0-0.4); EOSINOPHIL % 1.1 % (0.0-4.0); HEMATOCRIT 43.5 % (35.0-46.0); HEMO FLAGS DIFF FINAL; LYMPH % 7.6 % (9.0-44.0); LYMPHOCYTE # 0.6 TH/MM3 (1.0-4.8); MEAN CELL VOLUME 92.2 FL (80.0-100.0); MEAN CORPUSCULAR HEMOGLOBIN 31.2 PG (27.0-34.0); MEAN CORPUSCULAR HGB CONC 33.8 % (32.0-36.0); MONO % 7.4 % (0.0-8.0); NEUT % 83.7 % (16.0-70.0); PLATELET COUNT 172 TH/MM3 (150-450); RED BLOOD COUNT 4.71 MIL/MM3 (4.00-5.30); RED CELL DISTRIBUTION WIDTH 15.5 % (11.6-17.2); WHITE BLOOD COUNT 8.5 TH/MM3 (4.0-11.0)
--- NOTE | 2017-01-02 11:20 | RADRPT ---
EXAM DATE/TIME: 01/02/2017 10:41 [facility] COMPARISON: MRI BRAIN W & W/O CONTRAST, December 28, 2016, 14:10. INDICATIONS: Non verbal, right sided gaze RADIATION DOSE: 56.35 CTDIvol (mGy) This report was called by Dr. Chun to Dr. Caban at 11: 00 AM on 01/02/17. MEDICAL HISTORY: Melanoma with mets SURGICAL HISTORY: Non-responsive. ENCOUNTER: Initial ACUITY: 1 day PAIN SCALE: Non-responsive LOCATION: Cranial TECHNIQUE: Multiple contiguous axial images were obtained of the head. Using automated exposure control and adj ustment of the mA and/or kV according to patient size, radiation dose was kept as low as reasonably a chievable to obtain optimal diagnostic quality images. FINDINGS: Scatter hyperdense foci are noted throughout the left cerebral hemisphere and to a much lesser extent right occipital region which likely represent the previously described leptomeningeal metastatic disease. Clinical correlation is recommended. No midline shift or extraaxial bleed is noted. No ventriculomegaly is n oted. CONCLUSION: 1. Scattered hyperdense foci throughout the left cerebral hemisphere and right occipital region whic h most likely represent the previously described leptomeningeal metastatic disease. Clinical correla tion is recommended. 2. No new mass effect, midline shift or new extraaxial bleed. Celio Chun MD on January 02, 2017 at 10:55 Board Certified Radiologist. This report was verified electronically.
[2017-01-02 11:30] LABS: BACTERIA, URINE RARE /hpf; BLOOD, URINE NEG (NEG); GLUCOSE,URINE NEG (NEG); KETONE, URINE 10 mg/dL (NEG); MUCUS URINE FEW /lpf (OCC); NITRITE,URINE NEG (NEG); PH, URINE 6.5 (5.0-8.5); URINE COLOR YELLOW (YELLW/STRAW)
[2017-01-02 11:40] LABS: ALKALINE PHOSPHATASE 100 U/L (45-117); ALT (GPT) 30 U/L (10-53); ANION GAP 9 MEQ/L (5-15); AST (GOT) 36 U/L (15-37); BICARBONATE 30.1 MEQ/L (21.0-32.0); BLOOD UREA NITROGEN 9 MG/DL (7-18); CHLORIDE 100 MEQ/L (98-107); GLOMERULAR FILTRATION RATE 83 ML/MIN (>89); POTASSIUM 3.6 MEQ/L (3.5-5.1); SODIUM (NA) 139 MEQ/L (136-145); TOTAL BILIRUBIN ADULT 0.4 MG/DL (0.2-1.0)
--- NOTE | 2017-01-02 12:01 | PD ---
HPI Chief Complaint: Seizure Time Seen by Provider: 10:40 Travel History International Travel<30 days: No Contact w/Intl Traveler<30days: No Traveled to known affect area: No History of Present Illness HPI 56 year-old woman stage IV melanoma with known bony metastatic disease, recently diagnosed leptomeningeal spread, as well as an Wvuqcr-g-Vwqd that it fractured leaving the catheter in the right ventricle right ventricular outflow track, who was brought into the emergency department today with abrupt onset of altered mental status. Last seen normal at 8 AM. She is looking to the right, not responsive. She is otherwise been in her usual state of health since being discharged from the hospital 2 days ago. History Past Medical History Narrative Medical Stage IV melanoma with bony metastatic disease, leptomeningeal spread, on immunotherapy Menopausal: Yes Social History Alcohol Use: No Tobacco Use: No Allergies-Medications (Allergen,Severity, Reaction): Coded Allergies: Alcohol (Verified Allergy, Severe, CANT BREATHE, 09/27/16) RUBBING ALCOHOL,,DRINKS ALCOHOL WITHOUT DIFFICULTLY Vancomycin (Verified Allergy, Mild, Itching, 12/30/16) Red face and itching Cultivated Oat Pollen (Verified Allergy, Unknown, 09/27/16) Uncoded Allergies: PLAIN WATER (Allergy, Severe, SEVERE NAUSEA AND VOMITING , 08/11/11) SURGICAL TAPE (Allergy, Severe, REDNESS AND INFECTION , 08/11/11) Reported Meds & Prescriptions Reported Meds & Active Scripts Active Zofran Odt (Ondansetron Odt) 4 Mg Tab 4 Mg SL Q6HR PRN Tafinlar (Dabrafenib) 75 Mg Cap 150 Mg PO BID 30 Days Reported Coenzyme Q10 (Ubidecarenone) 10 Mg Cap 10 Mg PO DAILY [id number] (Ascorbic Acid) 1,000 Mg Tab 1,000 Mg PO DAILY Gummi Bear Multivitamin/M (Pediatric Multiple Vitamin W/) 1 Chw Chw 1 Chew PO DAILY Vitamin D3 (Cholecalciferol) 1,000 Unit Tab 1,000 Units PO DAILY Fish Oil 1000 mg ([place]-3 Fatty Acids) 1 Cap Cap 1,000 Mg PO DAILY Mekinist (Trametinib) 0.5 Mg Tab 2 Mg PO DAILY Calcium 600 with Vitamin D (Calcium Carbonate-Cholecalciferol) 600-400 mg-Unit Tab 1 Tab PO BID Review of Systems Except as stated in HPI: all other systems reviewed are Neg Physical Exam Narrative GENERAL: 56 year-old woman, obtunded, eyes deviated to the right, with right beating eye movements. SKIN: Warm and dry. HEAD: Atraumatic. Normocephalic. EYES: Pupils equal and round. No scleral icterus. No injection or drainage. Right beating eye movements. ENT: No nasal bleeding or discharge. Mucous membranes pink and moist. NECK: Trachea midline. No JVD. CARDIOVASCULAR: Regular rate and rhythm. No murmur appreciated. RESPIRATORY: No accessory muscle use. Clear to auscultation. Breath sounds equal bilaterally. GASTROINTESTINAL: Abdomen soft, non-tender, nondistended. Hepatic and splenic margins not palpable. MUSCULOSKELETAL: No obvious deformities. No edema. NEUROLOGICAL: Not alert. We will withdraw from pain in all 470s. Moves the left side more freely. Data Data Last Documented VS Vital Signs Date Time Temp Pulse Resp B/P Pulse Ox O2 Delivery O2 Flow Rate FiO2 01/02/17 11:01 96 3 01/02/17 10:45 70 24 157/81 Non-Rebreather Orders Complete Blood Count With Diff (01/02/17 10:41) Ct Brain W/O Iv Contrast(Rout) (01/02/17 ) Blood Glucose (01/02/17 10:41) Ecg Monitoring (01/02/17 10:41) Iv Access Insert/Monitor (01/02/17 10:41) Oximetry (01/02/17 10:41) Comprehensive Metabolic Panel (01/02/17 10:41) Sodium Chlor 0.9% 1000 Ml Inj (Ns 1000 M (01/02/17 10:41) Sodium Chloride 0.9% Flush (Ns Flush) (01/02/17 10:45) Lorazepam Inj (Ativan Inj) (01/02/17 10:45) Phenytoin Inj (Dilantin Inj) (01/02/17 10:45) Ua Includes Microscopic (01/02/17 10:41) I-Stat Creatinine (01/02/17 10:42) I-Stat Profile (01/02/17 10:42) Portable Eeg (01/02/17 ) Consult Neurology (01/02/17 ) Eeg Study (01/02/17 ) Chest, Single Ap (01/02/17 ) Admit Order (Ed Use Only) (01/02/17 ) Labs Laboratory Tests Test 01/02/17 01/02/17 10:42 11:15 White Blood Count 8.5 TH/MM3 Red Blood Count 4.71 MIL/MM3 Hemoglobin 14.7 GM/DL Bedside Hemoglobin 15.0 G/DL Hematocrit 43.5 % Bedside Hematocrit 44.0 % Mean Corpuscular Volume 92.2 FL Mean Corpuscular Hemoglobin 31.2 PG Mean Corpuscular Hemoglobin 33.8 % Concent Red Cell Distribution Width 15.5 % Platelet Count 172 TH/MM3 Mean Platelet Volume 7.9 FL Neutrophils (%) (Auto) 83.7 % Lymphocytes (%) (Auto) 7.6 % Monocytes (%) (Auto) 7.4 % Eosinophils (%) (Auto) 1.1 % Basophils (%) (Auto) 0.2 % Neutrophils # (Auto) 7.1 TH/MM3 Lymphocytes # (Auto) 0.6 TH/MM3 Monocytes # (Auto) 0.6 TH/MM3 Eosinophils # (Auto) 0.1 TH/MM3 Basophils # (Auto) 0.0 TH/MM3 CBC Comment DIFF FINAL Differential Comment Bedside Sodium 139 MMOL/L Sodium Level 139 MEQ/L Bedside Potassium 3.5 MMOL/L Potassium Level 3.6 MEQ/L Bedside Chloride 98 MMOL/L Chloride Level 100 MEQ/L Carbon Dioxide Level 30.1 MEQ/L Anion Gap 9 MEQ/L Bedside Blood Urea Nitrogen 9 MG/DL Blood Urea Nitrogen 9 MG/DL Creatinine 0.72 MG/DL Bedside Creatinine 0.6 MG/DL Estimat Glomerular Filtration 83 ML/MIN Rate Bedside Glucose 168 MG/DL Random Glucose 160 MG/DL Calcium Level 8.5 MG/DL Total Bilirubin 0.4 MG/DL Aspartate Amino Transf 36 U/L (AST/SGOT) Alanine Aminotransferase 30 U/L (ALT/SGPT) Alkaline Phosphatase 100 U/L Total Protein 7.0 GM/DL Albumin 3.4 GM/DL Urine Color YELLOW Urine Turbidity CLEAR Urine pH 6.5 Urine Specific [place] 1.018 Urine Protein TRACE mg/dL Urine Glucose (UA) NEG mg/dL Urine Ketones 10 mg/dL Urine Occult Blood NEG Urine Nitrite NEG Urine Bilirubin NEG Urine Urobilinogen LESS THAN 2.0 MG/DL Urine Leukocyte Esterase NEG Urine RBC 2 /hpf Urine WBC 2 /hpf Urine Bacteria RARE /hpf Urine Mucus FEW /lpf MDM Medical Decision Making Medical Screen Exam Complete: Yes Emergency Medical Condition: Yes Interpretation(s) CBC unremarkable. CMP remarkable for mildly elevated glucose. UA unremarkable CT head: Scattered hyperdense foci throughout the left or limits. Right a simple region which most likely represent a previously described above the meningeal metastatic disease. Differential Diagnosis Stroke, seizure, bleed, mass, other Narrative Course Medical decision making INITIAL: 56 year-old woman presents to the emergency department abrupt onset of altered mental status. She is right beating eye movements of right head deviation, and I think this more likely represents seizures and stroke. She was given 2 mg of Ativan IV without resolution of her symptoms. She was given a second 2 mg of Ativan with resolution. She still very somnolent. CT scan does not show any stroke but does show scattered hyperdense foci throughout the left her in a right testicle region which likely represents effusions previously described what the meningeal spread of her melanoma. She was also loaded with fosphenytoin. I spoke with Dr. dill, who examined the patient. We' ll plan on EEG, and admission. Critical Care Narrative Aggregate critical care time was 35 minutes. Time to perform other separately billable procedures was not included in the critical care time. My time did not include minutes spent treating any other patients simultaneously or on activities that did not directly contribute to the patient's treatment. The services I provided to this patient were to treat and/or prevent clinically significant deterioration that could result in: , brain injury, unrecognized status epilepticus, stroke. I provided critical care services requiring my management, as noted below: Chart data review, documentation time, medication orders and management, vital sign assessments/reviewing monitor data, ordering and reviewing lab tests, ordering and interpreting/reviewing x-rays and diagnostic studies, care of the patient and discussion of the patient with the admitting physicians. Diagnosis Primary Impression: Status epilepticus James Caban MD Jan 02, 2017 12:01
--- NOTE | 2017-01-02 13:00 | RADRPT ---
EXAM DATE/TIME: 01/02/2017 12:00 [place] COMPARISON: CHEST SINGLE AP, December 28, 2016, 10:29. INDICATIONS: Syncope. MEDICAL HISTORY: Gastroesophageal reflux disease. Metastatic melanoma. SURGICAL HISTORY: Breast augmentation. ENCOUNTER: Initial ACUITY: 1 day PAIN SCORE: Non-responsive. LOCATION: Bilateral chest FINDINGS: Bdrucr-Z-Gdjj is in good position. Mild interstitial edema is present. Catheter fragment is again n oted. There is no pneumothorax. Portion of bony skeleton visualized unremarkable. CONCLUSION: Increase in interstitial edema when compared to the study of 12/28/16. Otis Zamora MD FACR on January 02, 2017 at 12:49 Board Certified Radiologist. This report was verified electronically.
[2017-01-02] MEDS: PHENYTOIN INJ 100 MG/2 ML VIAL IV SCH ×2 (14:34→22:30)
--- NOTE | 2017-01-02 14:51 | HHI.HP ---
HPI Service [facility] Hospitalists Primary Care Physician Zac Kirkpatrick MD Admission Diagnosis Status Epilepticus Chief Complaint: Seizure activity Travel History International Travel<30 Days: No Contact w/Intl Traveler <30 Da: No Traveled to Known Affected Are: No History of Present Illness Mrs. Corcoran is a 56 y/o WF with metastatic melanoma stage 4 with mets to bone , liver, lung, soft tissues and most recently found to have leptomeningeal spread on immunotherapy with Dr. Jay. Pt was just admitted to [facility] last week with left sided headaches, slurred speech/ facial droop/tingling paresthesias and pain on the left side of the face as well as nausea/vomiting. MRI brain (12/28) revealed leptomeningeal spread of melanoma with findings being worse on the left side and there is also involvement of the posterior fossa. CXR during that admission revealed the distal portion of the jhouxg-n-sgtj to be fractured and located in the right heart outflow tract. Pt was evaluated by Cardiology at that time and it was felt that given pt's advanced metastatic melanoma and lack of findings on telemetry, that the pt would NOT benefit from risk of trying to retrieve fractured section of her uuwgxh-w-copt. Pt underwent nausfe-f-btnr exchanged with IR on 12/30/16. She was discharged to home following port exchange. Pt was brought back to the ED this morning as a stroke alert with abrupt onset of altered mental status with a right sided gaze and was not responsive. Pt was noted to have right beating eye movements of right head deviation, and it was felt that her presentation was more likely representing seizures and not a stroke. She was given 2 mg of Ativan IV without resolution of her symptoms. She was given a second 2 mg of Ativan with resolution. CT scan revealed scattered hyperdense foci throughout the left cerebral hemisphere and right occipital region which most likely represent the previously described leptomeningeal metastatic disease. No new mass effect, midline shift or new extraaxial bleed. Pt currently unable to provide any history as she is lethargic currently. She was evaluated by Neurology and was loaded with fosphenytoin. Review of Systems ROS Limitations: Clinical Condition, Altered Mental Status Neurologic: COMPLAINS OF: Seizures Past Family Social History Past Medical History Metastatic melanoma stage 4 with mets to bone, liver, lung, soft tissues and most recently found to have leptomeningeal spread on immunotherapy with Dr. Jay Past Surgical History Avamkf-n-vsgz placement and replacement Reported Medications Zofran Odt 4 Mg SL Q6HR PRN Tafinlar (Dabrafenib) 150 Mg PO BID Mekinist (Trametinib) 2 Mg PO DAILY Calcium 600 with Vitamin D 600-400 mg-Unit Tab 1 Tab PO BID Coenzyme Q10 10 Mg PO DAILY Asco-Tabs 1,000 Mg PO DAILY Gummi Bear Multivitamin/M 1 Chew PO DAILY Vitamin D3 1,000 Units PO DAILY Fish Oil 1,000 Mg PO DAILY Allergies: Coded Allergies: Alcohol (Verified Allergy, Severe, CANT BREATHE, 09/27/16) RUBBING ALCOHOL,,DRINKS ALCOHOL WITHOUT DIFFICULTLY Vancomycin (Verified Allergy, Mild, Itching, 12/30/16) Red face and itching Cultivated Oat Pollen (Verified Allergy, Unknown, 09/27/16) Uncoded Allergies: PLAIN WATER (Allergy, Severe, SEVERE NAUSEA AND VOMITING , 08/11/11) SURGICAL TAPE (Allergy, Severe, REDNESS AND INFECTION , 08/11/11) Family History Noncontributory Social History Denies any alcohol, tobacco or illicit drug use Physical Exam Vital Signs Vital Signs Date Time Temp Pulse Resp B/P Pulse Ox O2 Delivery O2 Flow Rate FiO2 01/02/17 14:09 74 18 141/80 97 Nasal Cannula 3 01/02/17 11:59 102 24 180/87 96 Nasal Cannula 3 01/02/17 11:01 96 3 01/02/17 10:45 70 24 157/81 100 Non-Rebreather 01/02/17 10:41 183/94 Physical Exam GENERAL: This is a well-nourished, well-developed patient, lethargic HEENT: Atraumatic. Normocephalic. No temporal or scalp tenderness. No scleral icterus. Airway patent. NECK: Trachea midline, supple, nontender. CARDIO: Regular. RESP: CTA bilaterally. No wheezes, rales, or rhonchi. ABD: +BS, soft, non-tender, nondistended. EXT: Extremities without clubbing, cyanosis, or edema. NEURO: Unable to assess currently. Laboratory Laboratory Tests Test 01/02/17 01/02/17 10:42 11:15 White Blood Count 8.5 Red Blood Count 4.71 Hemoglobin 14.7 Bedside Hemoglobin 15.0 Hematocrit 43.5 Bedside Hematocrit 44.0 Mean Corpuscular Volume 92.2 Mean Corpuscular Hemoglobin 31.2 Mean Corpuscular Hemoglobin 33.8 Concent Red Cell Distribution Width 15.5 Platelet Count 172 Mean Platelet Volume 7.9 Neutrophils (%) (Auto) 83.7 Lymphocytes (%) (Auto) 7.6 Monocytes (%) (Auto) 7.4 Eosinophils (%) (Auto) 1.1 Basophils (%) (Auto) 0.2 Neutrophils # (Auto) 7.1 Lymphocytes # (Auto) 0.6 Monocytes # (Auto) 0.6 Eosinophils # (Auto) 0.1 Basophils # (Auto) 0.0 CBC Comment DIFF FINAL Differential Comment Bedside Sodium 139 Sodium Level 139 Bedside Potassium 3.5 Potassium Level 3.6 Bedside Chloride 98 Chloride Level 100 Carbon Dioxide Level 30.1 Anion Gap 9 Bedside Blood Urea Nitrogen 9 Blood Urea Nitrogen 9 Creatinine 0.72 Bedside Creatinine 0.6 Estimat Glomerular Filtration 83 Rate Bedside Glucose 168 Random Glucose 160 Calcium Level 8.5 Total Bilirubin 0.4 Aspartate Amino Transf 36 (AST/SGOT) Alanine Aminotransferase 30 (ALT/SGPT) Alkaline Phosphatase 100 Total Protein 7.0 Albumin 3.4 Urine Color YELLOW Urine Turbidity CLEAR Urine pH 6.5 Urine Specific [place] 1.018 Urine Protein TRACE Urine Glucose (UA) NEG Urine Ketones 10 Urine Occult Blood NEG Urine Nitrite NEG Urine Bilirubin NEG Urine Urobilinogen LESS THAN 2.0 Urine Leukocyte Esterase NEG Urine RBC 2 Urine WBC 2 Urine Bacteria RARE Urine Mucus FEW Result Diagram: 01/02/17 1042 01/02/17 1042 Imaging Last Impressions Head CT 01/02/17 0000 Signed Impressions: Service Date/Time: Monday, January 02, 2017 10:41 - CONCLUSION: 1. Scattered hyperdense foci throughout the left cerebral hemisphere and right occipital region which most likely represent the previously described leptomeningeal metastatic disease. Clinical correlation is recommended. 2. No new mass effect, midline shift or new extraaxial bleed. Celio Chun MD Septic Shock Reassessment Heart: Regular rate and rhythm Lungs: Clear Skin: Warm Peripheral Pulses: Bounding Right Radial Bounding Left Radial Bounding Right Popliteal Bounding Left Popliteal Bounding Right Dorsalis Pedis Bounding Left Dorsalis Pedis Bounding Right Posterior Tibial Bounding Left Posterior Tibial Capillary Refill: <2 seconds Assessment and Plan Problem List: (1) Status epilepticus Status: Acute Plan: - Pt admitted with new onset seizure activity/status epilepticus - She was recently found to have leptomeningeal spread of her known melanoma with findings being worse on the left side and there is also involvement of the posterior fossa - Neurology has been consulted - Pt received a total of 4mg of Ativan in the ER with resolution of her seizure activity - Pt has been loaded with Dilantin IV and is being continued on Dilantin 100mg IV Q8H with monitoring of her Dilantin level - Ativan PRN - EEG is ordered - Pt is NPO - Swallow evaluation - IVF - Supportive care - DVT prophylaxis (2) Metastatic melanoma Status: Chronic Plan: - Pt with metastatic melanoma stage 4 with mets to bone, liver, lung, soft tissues and most recently found to have leptomeningeal spread on immunotherapy with Dr. Jay (3) Displacement of infusion catheter Status: Acute Plan: - During recent admission CXR revealed the distal portion of the ikfdvo-n-espe to be fractured and located in the right heart outflow tract. - Pt was evaluated by Cardiology at that time and it was felt that given pt's advanced metastatic melanoma and lack of findings on telemetry, that the pt would NOT benefit from risk of trying to retrieve fractured section of her qidjqe-o-odoe. - Pt underwent yxotxe-t-fxlr exchanged with IR on 12/30/16. Assessment and Plan Patient examined. Assessment and plan formulated with Kristin Cain PA-C. I agree with the above. melanoma with leptomeningeal spread. presents with AMS and seizures. seen by neurology. s/p ativan and iv dilantin f/u levels. ICU admission. updated family npo. ivf. dvt prophylaxis. Physician Certification 2 Midnight Certification Type: Admission for Inpatient Services Order for Inpatient Services The services are ordered in accordance with Medicare regulations or non- Medicare payer requirements, as applicable. In the case of services not specified as inpatient-only, they are appropriately provided as inpatient services in accordance with the 2-midnight benchmark. Estimated LOS (days): 3 3 days is the estimated time the patient will need to remain in the hospital, assuming treatment plan goals are met and no additional complications. Post-Hospital Plan: Not yet determined Problem Qualifiers (1) Displacement of infusion catheter: Qualified Code: T82.524D - Displacement of infusion catheter, subsequent encounter Kristin Cain Jan 02, 2017 14:51 Donell Ortiz MD Jan 02, 2017 20:10 Kristin Cain Jan 02, 2017 14:51
[2017-01-02] MEDS ORDERED: ONDANSETRON HCL 4 MG/2 ML VIAL IV PRN (15:45)
[2017-01-02] MEDS ORDERED: ACETAMINOPHEN 325 MG TAB PO PRN (15:45)
[2017-01-02] MEDS ORDERED: ENALAPRILAT 1.25 MG/ML VIAL IV PUSH PRN (16:30)
--- NOTE | 2017-01-02 16:56 | MG ---
cc: NISHANT STACK Lab No: Date: 01/02/2017 Age: Sex: F Race: PAST MEDICAL HISTORY 1. History of leptomeningeal disease. 2. Breast implants. 3. Cancer. 4. Melanoma mets. MEDICATIONS 1. Dilantin. 2. Ativan. DESCRIPTION There is very frequent phase reversing sharp waves and at times spikes over the right temporal head region with a field into the right posterior central head region to start the recording. Appears to be a right mid temporal and frontal temporal, quite abnormal appearing. At times almost PLED like at about 1-3 Hz. And this continues throughout the recording. Photic stimulation was performed without significant posterior driving. Hyperventilation not performed. IMPRESSION Significant right seizure focus continuous throughout this recording, looks like it is probably PLEDs. She is a high risk for seizures, could be in subclinical status could be another consideration on the left temporal lobe. I would recommend this patient have further antiepileptic medications possibly phenobarbital. MD JOLANTA Jorgensen/RAZIA /4:31 PM /4:47 PM
[2017-01-02] MEDS: SODIUM CHLOR 0.9% 1000 ML INJ 1,000 ML IV SCH (18:12)
[2017-01-02] MEDS ORDERED: LORazepam 2 MG/ML VIAL IV PUSH ONE ×2 (19:30→21:45)
[2017-01-03 01:03] VITALS: BP 134/79; PULSE 85; RESP 18; O2SAT 94
[2017-01-03 03:00] VITALS: BP 153/80; PULSE 80; RESP 22; O2SAT 97
[2017-01-03 05:14] VITALS: BP 176/80; PULSE 80; RESP 18; O2SAT 96
[2017-01-03 05:14] LABS: AUTOMATED NEUTROPHIL # 6.5 TH/MM3 (1.8-7.7); BASOPHIL % 0.2 % (0.0-2.0); EOSINOPHIL # 0.1 TH/MM3 (0-0.4); EOSINOPHIL % 1.4 % (0.0-4.0); HEMATOCRIT 43.4 % (35.0-46.0); HEMO FLAGS DIFF FINAL; LYMPH % 11.4 % (9.0-44.0); MEAN CELL VOLUME 90.5 FL (80.0-100.0); MEAN CORPUSCULAR HEMOGLOBIN 31.4 PG (27.0-34.0); MEAN CORPUSCULAR HGB CONC 34.7 % (32.0-36.0); MONO % 12.1 % (0.0-8.0); NEUT % 74.9 % (16.0-70.0); PLATELET COUNT 119 TH/MM3 (150-450); RED BLOOD COUNT 4.79 MIL/MM3 (4.00-5.30); RED CELL DISTRIBUTION WIDTH 15.5 % (11.6-17.2); WHITE BLOOD COUNT 8.7 TH/MM3 (4.0-11.0)
[2017-01-03 05:19] LABS: BICARBONATE 25.1 MEQ/L (21.0-32.0); MAGNESIUM 2.2 MG/DL (1.5-2.5); POTASSIUM 3.4 MEQ/L (3.5-5.1)
[2017-01-03 06:31] VITALS: BP 151/72; PULSE 88; RESP 18; O2SAT 96
[2017-01-03] MEDS: PHENYTOIN INJ 100 MG/2 ML VIAL IV SCH ×3 (06:46→22:27)
[2017-01-03] MEDS: SODIUM CHLOR 0.9% 1000 ML INJ 1,000 ML IV SCH (06:50)
--- NOTE | 2017-01-03 08:59 | HHI.PR ---
Subjective Remarks Pt still very altered and lethargic She was given Ativan twice last night. Pt is in restraints She awakens to her name but doesn't answer questions meaningfully. Objective Vitals Vital Signs Date Time Temp Pulse Resp B/P Pulse Ox O2 Delivery O2 Flow Rate FiO2 01/03/17 06:31 88 18 151/72 96 Room Air 01/03/17 05:14 80 18 176/80 96 Room Air 01/03/17 03:00 80 22 153/80 97 Room Air 01/03/17 01:03 85 18 134/79 94 Room Air 01/02/17 22:00 78 18 139/93 96 Room Air 01/02/17 21:00 91 137/76 94 Room Air 01/02/17 20:00 80 18 128/73 94 Room Air 01/02/17 17:53 74 18 125/62 95 Nasal Cannula 3 01/02/17 14:30 72 18 150/79 98 Nasal Cannula 3 01/02/17 14:09 74 18 141/80 97 Nasal Cannula 3 01/02/17 11:59 102 24 180/87 96 Nasal Cannula 3 01/02/17 11:01 96 3 01/02/17 10:45 70 24 157/81 100 Non-Rebreather 01/02/17 10:41 183/94 01/02/17 01/02/17 01/03/17 15:00 23:00 07:00 Output Total 950 ml Balance -950 ml Output Urine Total 950 ml Result Diagram: 01/03/17 0420 01/03/17 0420 Other Results Laboratory Tests Test 01/02/17 01/02/17 01/03/17 10:42 11:15 04:20 White Blood Count 8.5 TH/MM3 8.7 TH/MM3 Red Blood Count 4.71 MIL/MM3 4.79 MIL/MM3 Hemoglobin 14.7 GM/DL 15.1 GM/DL Bedside Hemoglobin 15.0 G/DL Hematocrit 43.5 % 43.4 % Bedside Hematocrit 44.0 % Mean Corpuscular Volume 92.2 FL 90.5 FL Mean Corpuscular Hemoglobin 31.2 PG 31.4 PG Mean Corpuscular Hemoglobin 33.8 % 34.7 % Concent Red Cell Distribution Width 15.5 % 15.5 % Platelet Count 172 TH/MM3 119 TH/MM3 Mean Platelet Volume 7.9 FL 8.5 FL Neutrophils (%) (Auto) 83.7 % 74.9 % Lymphocytes (%) (Auto) 7.6 % 11.4 % Monocytes (%) (Auto) 7.4 % 12.1 % Eosinophils (%) (Auto) 1.1 % 1.4 % Basophils (%) (Auto) 0.2 % 0.2 % Neutrophils # (Auto) 7.1 TH/MM3 6.5 TH/MM3 Lymphocytes # (Auto) 0.6 TH/MM3 1.0 TH/MM3 Monocytes # (Auto) 0.6 TH/MM3 1.1 TH/MM3 Eosinophils # (Auto) 0.1 TH/MM3 0.1 TH/MM3 Basophils # (Auto) 0.0 TH/MM3 0.0 TH/MM3 CBC Comment DIFF FINAL DIFF FINAL Differential Comment Bedside Sodium 139 MMOL/L Sodium Level 139 MEQ/L 138 MEQ/L Bedside Potassium 3.5 MMOL/L Potassium Level 3.6 MEQ/L 3.4 MEQ/L Bedside Chloride 98 MMOL/L Chloride Level 100 MEQ/L 103 MEQ/L Carbon Dioxide Level 30.1 MEQ/L 25.1 MEQ/L Anion Gap 9 MEQ/L 10 MEQ/L Bedside Blood Urea Nitrogen 9 MG/DL Blood Urea Nitrogen 9 MG/DL 6 MG/DL Creatinine 0.72 MG/DL 0.48 MG/DL Bedside Creatinine 0.6 MG/DL Estimat Glomerular Filtration 83 ML/MIN 133 ML/MIN Rate Bedside Glucose 168 MG/DL Random Glucose 160 MG/DL 113 MG/DL Calcium Level 8.5 MG/DL 8.4 MG/DL Total Bilirubin 0.4 MG/DL Aspartate Amino Transf 36 U/L (AST/SGOT) Alanine Aminotransferase 30 U/L (ALT/SGPT) Alkaline Phosphatase 100 U/L Total Protein 7.0 GM/DL Albumin 3.4 GM/DL Urine Color YELLOW Urine Turbidity CLEAR Urine pH 6.5 Urine Specific [place] 1.018 Urine Protein TRACE mg/dL Urine Glucose (UA) NEG mg/dL Urine Ketones 10 mg/dL Urine Occult Blood NEG Urine Nitrite NEG Urine Bilirubin NEG Urine Urobilinogen LESS THAN 2.0 MG/DL Urine Leukocyte Esterase NEG Urine RBC 2 /hpf Urine WBC 2 /hpf Urine Bacteria RARE /hpf Urine Mucus FEW /lpf Magnesium Level 2.2 MG/DL Phenytoin (Dilantin) Level 16.8 MCG/ML Imaging Last Impressions Head CT 01/02/17 0000 Signed Impressions: Service Date/Time: Monday, January 02, 2017 10:41 - CONCLUSION: 1. Scattered hyperdense foci throughout the left cerebral hemisphere and right occipital region which most likely represent the previously described leptomeningeal metastatic disease. Clinical correlation is recommended. 2. No new mass effect, midline shift or new extraaxial bleed. 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 - Pt is NPO - Swallow evaluation - IVF - Supportive care - DVT prophylaxis (2) Metastatic melanoma Status: Chronic Plan: - Pt with metastatic melanoma stage 4 with mets to bone, liver, lung, soft tissues and most recently found to have leptomeningeal spread on immunotherapy with Dr. Jay (3) Displacement of infusion catheter Status: Acute Plan: - During recent admission CXR revealed the distal portion of the ekosuy-a-yyvo to be fractured and located in the right heart outflow tract. - Pt was evaluated by Cardiology at that time and it was felt that given pt's advanced metastatic melanoma and lack of findings on telemetry, that the pt would NOT benefit from risk of trying to retrieve fractured section of her kskyng-h-kugf. - Pt underwent dzrgpc-v-[id number] exchanged with IR on 12/30/16. Assessment and Plan Patient examined. Assessment and plan formulated with Kristin Cain PA-C. I agree with the above. pt gets agitated. requiring extra ativan on iv dilantin. check repeat eeg to see if sz activity stopped. consulted oncology for stage 4 melanoma with leptomeningeal spread. Prognosis seems very poor. ?hospice. nursing says family was here and upset that pt still in ED. still no ICU bed. also I called the /significant other listed on chart that I updated extensively last night. barratte operator says number not going through. i asked nursing to notify me when they return and I will give update. Problem Qualifiers (1) Displacement of infusion catheter: Qualified Code: T82.524D - Displacement of infusion catheter, subsequent encounter Kristin Cain Jan 03, 2017 08:58 Donell Ortiz MD Jan 03, 2017 13:39
[2017-01-03] MEDS ORDERED: LORazepam 2 MG/ML VIAL IV PUSH ONE (10:30)
[2017-01-03] MEDS: NS + KCL 20 MEQ INJ 1,000 ML IV SCH ×2 (10:33→20:46)
[2017-01-03] MEDS ORDERED: LORazepam 2 MG/ML VIAL IV PUSH PRN (13:15)
--- NOTE | 2017-01-03 15:34 | HHI.PR ---
Subjective Remarks no sz's reported still somnolent eeg f/u ongoing Objective Vital Signs Date Time Temp Pulse Resp B/P Pulse Ox O2 Delivery O2 Flow Rate FiO2 01/03/17 06:31 88 18 151/72 96 Room Air 01/03/17 05:14 80 18 176/80 96 Room Air 01/03/17 03:00 80 22 153/80 97 Room Air 01/03/17 01:03 85 18 134/79 94 Room Air 01/02/17 22:00 78 18 139/93 96 Room Air 01/02/17 21:00 91 137/76 94 Room Air 01/02/17 20:00 80 18 128/73 94 Room Air 01/02/17 17:53 74 18 125/62 95 Nasal Cannula 3 I/O 01/02/17 01/02/17 01/02/17 01/03/17 01/03/17 01/03/17 07:00 15:00 23:00 07:00 15:00 23:00 Output Total 950 ml Balance -950 ml Output Urine Total 950 ml sleepy arousable moans perrla motor moves and w/d all 4 extremities does not follow at the moment commands. Result Diagram: 01/03/1741901/03/17 0420 Procedures eeg / c/w sz vs pleds repeat eeg today pleds improved no active sz's per my view -report pending. Assessment and Plan Assessment and Plan s/p sz likey secondary to mets -pht level 16.8-repeat level in am sz precautions ativan prn d/c planning if stable bnext 24-48hrs f/u with oncology. Divine Rod MD Jan 03, 2017 15:34
[2017-01-03 19:31] VITALS: BP 167/78; PULSE 98; RESP 20; O2SAT 93
[2017-01-03] MEDS ORDERED: MORPHINE SULFATE 4 MG/ML INJ IV PUSH PRN (19:45)
[2017-01-03] MEDS ORDERED: HALOPERIDOL LACTATE 5 MG/ML AMP IM PRN (19:45)
--- NOTE | 2017-01-03 20:38 | MB ---
cc: CJ ROBERT DATE OF CONSULTATION 01/03/2017 DATE OF 1960 REASON FOR CONSULTATION Patient with metastatic melanoma with new mets to the leptomeninges presents with altered mental status. CHIEF COMPLAINT The patient is currently encephalopathic. HISTORY OF PRESENT ILLNESS Ms. Corcoran is a 56-year-old female who has a diagnosis of BRAF positive metastatic melanoma. The patient was recently being treated with a BRAF inhibitor and MEK inhibitor. 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 She has deteriorated quite significantly. She was brought to the hospital with presumed seizure activity. In the emergency department she underwent CT imaging of the head which showed scattered hyperdense foci involving the left cerebral hemisphere, also the right occipital region which represents leptomeningeal metastatic disease. I have been consulted to make further recommendations regarding this patient. The patient is currently unresponsive. She is difficult to arouse. Her family members are present. They have numerous questions regarding the patient's prognosis. REVIEW OF SYSTEMS Unable to obtain due to the patient's mental status. PAST MEDICAL HISTORY Metastatic malignant melanoma. PAST SURGICAL HISTORY Hhualq-O-Kryc placement. MEDICATIONS Home medications: 1. Dabrafenib 150 milligrams p.o. twice a day. 2. Trametinib 2 mg p.o. 3. Zofran 4 mg sublingual q.6h p.r.n. 4. Calcium 600 with vitamin D one tablet p.o. b.i.d. 5. Co enzyme Q 10, 10 milligrams p.o. daily. 6. Multivitamins. 7. Vitamin D3 1000 units p.o. daily. 8. Fish oil 1000 mg p.o. daily. ALLERGIES SHE IS ALLERGIC TO VANCOMYCIN AND SURGICAL TAPE. FAMILY HISTORY Noncontributory to this admission. SOCIAL HISTORY The patient is currently encephalopathic. PHYSICAL EXAMINATION VITAL SIGNS: Blood pressure is 151/72, pulse is in the 80s, respiratory rate is 18, O2 sats are 96% on room air. GENERAL: Acutely ill appearing patient who is currently unresponsive. She opens her eyes but does not respond to any questions or verbal commands. At times she is agitated. HEENT: Pupils are equal, round, reactive to light. EOMI. No oral thrush. No oral lesions. NECK: Supple. No JVD, no bruits. No lymphadenopathy. CHEST: Clear to auscultation bilaterally. CARDIOVASCULAR: S1-S2, regular rate and rhythm. ABDOMEN: Soft, nontender, nondistended. Bowel sounds are present. EXTREMITIES: Without any edema, erythema or cyanosis. SKIN: Without any petechiae, lesion or bruises. NEUROLOGICAL: Unresponsive. LABORATORY DATA WBC 8.7, hemoglobin is 15.1, platelet count is 119. Serum chemistries show sodium 138, potassium 3.4, chloride 103, CO2 25.1, creatinine is 0.48, calcium is 8.4, magnesium is 2.4. IMAGING STUDIES Imaging was reviewed in the EMR. ASSESSMENT/PLAN This is a 56-year-old female who unfortunately has metastatic melanoma which has metastasized to the leptomeninges. Additionally, she has metastatic disease to the bone, as well as to her skin. She presents with seizure-like activity and altered mental status. 1. 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 The patient has a very poor prognosis. I have discussed this with the family at length. They inquired whether there would be any additional options of treatment. I explained to them that having leptomeningeal spread is a very poor prognostic feature. We could treat her brain disease with radiation but the outcomes are generally not very good. There are other treatment options for melanoma but given that she is acutely very ill and encephalopathic, I do not believe that additional treatments will prolong her life or improve its quality. The patient's mother as well as sister were present during this conversation. After a prolonged conversation and answering their questions, the family decided not to pursue any aggressive treatments or interventions. They have asked me to consult palliative care so that the patient can be transferred to hospice. I have also discussed the code status with the family and they emphasized that the patient conveyed to them that she would never want to be resuscitated should she become incapacitated. They have requested that I convert her code status to do not resuscitate. They wish to pursue comfort measures. We will stop drawing labs and routine vital signs. I have placed a consult for palliative care. I am ordering Haldol prn for agitation. I am additionally ordering IV morphine to help control pain as well as any respiratory discomfort. Thank you for allowing me to participate in the care of this patient. I will continue to follow this patient along. MD IVETH Morris /7:49 PM 8:11 PM [facility]ENTERYesy
[2017-01-03 23:18] VITALS: BP 159/78; PULSE 81; RESP 16; O2SAT 92
[2017-01-04 00:03] VITALS: BP 153/86; PULSE 80; RESP 20; TEMP 96.9; O2SAT 97
[2017-01-04] MEDS: NS + KCL 20 MEQ INJ 1,000 ML IV SCH (01:10)
[2017-01-04 01:40] VITALS: PULSE 87
[2017-01-04 04:00] VITALS: BP 177/90; PULSE 93; RESP 18; TEMP 97.3; O2SAT 96
[2017-01-04] MEDS: PHENYTOIN INJ 100 MG/2 ML VIAL IV SCH ×2 (05:50→13:33)
--- NOTE | 2017-01-04 07:58 | MG ---
cc: NISHANT STACK Corrected Copy: 01/04/17 Lab No: [id number] Date: Age: Sex: F Asleep. Restless. Hyperventilation not performed. Leptomeningeal disease. Cancer. Dilantin. Ativan. DESCRIPTION There is some phase reversing spikes seen over the left temporal head region and left posterior central head region, at times PLED-like occurring every three seconds, sometimes every two seconds on the background of diffuse alpha and theta slowing. They are the low amplitudes in the prior EEG and appear somewhat improved but still present. Photic stimulation was performed without significant posterior driving. IMPRESSION Still with the left-sided PLEDs, although they are less frequent and amplitude is lower. Phenobarbital could be considered. Significant left seizure focus on the left. MD JOLANTA Jorgensen/SOUMYA /7:48 AM /2:13 PM
[2017-01-04 08:00] VITALS: BP 141/82; PULSE 94; RESP 21; TEMP 98.4; O2SAT 95
--- NOTE | 2017-01-04 08:59 | HHI.PR ---
Subjective Remarks confused. Objective Vitals confused restrained. heart reg lung cta abd s/nt ext no edema Vital Signs Date Time Temp Pulse Resp B/P Pulse Ox O2 Delivery O2 Flow Rate FiO2 01/04/17 08:00 98.4 94 21 141/82 95 01/04/17 04:00 97.3 93 18 177/90 96 01/04/17 01:40 87 01/04/17 00:03 96.9 80 20 153/86 97 01/03/17 23:18 81 16 159/78 92 Nasal Cannula 4 01/03/17 19:31 98 20 167/78 93 Room Air 01/03/17 01/03/17 01/04/17 15:00 23:00 07:00 Intake Total 900 ml Output Total 900 ml Balance 0 ml IV Total 900 ml Output Urine Total 900 ml # Bowel Movements 0 Result Diagram: 01/03/17 0420 01/03/17 0420 Imaging Last Impressions Head CT 01/02/17 0000 Signed Impressions: Service Date/Time: Monday, January 02, 2017 10:41 - CONCLUSION: 1. Scattered hyperdense foci throughout the left cerebral hemisphere and right occipital region which most likely represent the previously described leptomeningeal metastatic disease. Clinical correlation is recommended. 2. No new mass effect, midline shift or new extraaxial bleed. Celio Chun MD A/P Problem List: (1) Status epilepticus Status: Acute Plan: - Pt admitted with new onset seizure activity/status epilepticus - She was recently found to have leptomeningeal spread of her known melanoma with findings being worse on the left side and there is also involvement of the posterior fossa received ativan and loaded with dilantin. repeat eeg shows improved but persistent sz activity pt remains encephalopathic oncology discussed with family. dnr palliative and hospice consults pending. cont supportive care (2) Metastatic melanoma Status: Chronic Plan: - Pt with metastatic melanoma stage 4 with mets to bone, liver, lung, soft tissues and most recently found to have leptomeningeal spread on immunotherapy with Dr. Jay (3) Displacement of infusion catheter Status: Acute Plan: - During recent admission CXR revealed the distal portion of the spmtva-c-fmmk to be fractured and located in the right heart outflow tract. - Pt was evaluated by Cardiology at that time and it was felt that given pt's advanced metastatic melanoma and lack of findings on telemetry, that the pt would NOT benefit from risk of trying to retrieve fractured section of her xekubd-z-lywt. - Pt underwent vymyrj-h-jxro exchanged with IR on 12/30/16. Problem Qualifiers (1) Displacement of infusion catheter: Qualified Code: T82.524D - Displacement of infusion catheter, subsequent encounter Donell Ortiz MD Jan 04, 2017 08:59
[2017-01-04] MEDS: LORazepam 2 MG/ML VIAL IV PUSH PRN ×2 (09:53→13:34)
[2017-01-04 10:19] VITALS: PULSE 96
--- NOTE | 2017-01-04 13:12 | PD.CONS ---
Consult Service Palliative Care Consult Requested By Dr. Jay . Primary Care Physician Zac Kirkpatrick MD . Reason for Consultation a. To assist with evaluation and management of symptoms including: Seizures , agitation b. To assist medical decision maker(s) with: better understanding of current medical conditions; weighing benefits/burdens of medical treatment options; making medical treatment decisions. . HPI History of Present Illness This 56-year-old female, with a past history of stage IV melanoma, anemia, and recent pneumonia, presented to the emergency room because of several days of altered mental status, increasing confusion, and then unresponsiveness. In the past couple months, she had been found by scans to have had leptomeningeal spread of her disease. In the emergency department, findings included: * Nonverbal, nearly unresponsive * Pulse 70, respirations 24, blood pressure 157/81, oxygen saturation 96% on 3 L * White count 8.5, hemoglobin 14.7 * Sodium 139, creatinine 0.72, albumin 3.4 * CT of the brain revealed hyperdense foci throughout the left hemisphere consistent with leptomeningeal metastatic disease * EEG revealed continuous right-sided seizure focus The patient was admitted, and she had episodes of agitation, requiring placing her in restraints. Oncology saw her, and explained to the family that the prognosis was now quite poor. Palliative Care was consulted to assist with symptom management and to continue discussions regarding prognosis and the benefits and burdens of various treatment options. . Function/Cognitive Trajectory Until the past week, the patient was functioning independently, and was even still going to work. . Review of Systems ROS Limitations: Altered Mental Status Constitutional: COMPLAINS OF: Fatigue Endocrine: DENIES: Polyuria Eyes: DENIES: Eye inflammation Ears, nose, mouth, throat: DENIES: Epistaxis Respiratory: DENIES: Cough, Shortness of breath Cardiovascular: DENIES: Chest pain, Lower Extremity Edema Gastrointestinal: DENIES: Bloody stools, Diarrhea, Vomiting, Vomiting blood Genitourinary: DENIES: Hematuria Musculoskeletal: DENIES: Joint pain Integumentary: DENIES: Rash Hematologic/Lymphatics: DENIES: Bruising Immunologic/Allergic: DENIES: Urticaria Neurologic: COMPLAINS OF: Seizures Psychiatric: COMPLAINS OF: Agitation Past Family Social History Coded Allergies: Alcohol (Verified Allergy, Severe, CANT BREATHE, 09/27/16) RUBBING ALCOHOL,,DRINKS ALCOHOL WITHOUT DIFFICULTLY Vancomycin (Verified Allergy, Mild, Itching, 12/30/16) Red face and itching Cultivated Oat Pollen (Verified Allergy, Unknown, 09/27/16) Uncoded Allergies: PLAIN WATER (Allergy, Severe, SEVERE NAUSEA AND VOMITING , 08/11/11) SURGICAL TAPE (Allergy, Severe, REDNESS AND INFECTION , 08/11/11) Past Medical History * Seizures, secondary to leptomeningeal melanoma disease * Stage IV melanoma * History of anemia * Pneumonia in 2015 * Epistaxis September 2016 * Fractured Nswhwp-z-Squn . Past Surgical History * Melanoma on her back 2010 * Breast inflammatory mass April 2016 * Ogwyum-w-Ztnf . Current Medications Medications (Trade) Dose Ordered Sig/Andrea Route Start Time Stop Time Status Last Admin (NS Flush) 2 ml UNSCH PRN IVF 01/02/17 10:45 (Dilantin Inj) 100 mg Q8HR IV 01/02/17 14:00 01/04/17 05:50 (Tylenol) 650 mg Q4H PRN PO 01/02/17 15:45 (Zofran Inj) 4 mg Q6H PRN IV 01/02/17 15:45 Enalaprilat 1.25 mg 1.25 mg Q6H PRN IV PUSH 01/02/17 16:30 (NS + KCl 20 Meq Inj) 1,000 ml @ 84 mls/hr [id number] IV 01/03/17 09:00 01/04/17 01:10 (Ativan Inj) 2 mg Q2H PRN IV PUSH 01/03/17 09:00 01/04/17 09:53 (Haldol Inj) 2 mg Q4H PRN IM 01/03/17 19:45 01/03/17 22:37 (Morphine Inj) 2 mg Q3H PRN IV PUSH 01/03/17 19:45 Family History The patient's father of lung cancer, and mother at a young age. There is no family history of melanoma. . Substance Use Tobacco: None. Alcohol: None. Prescription med abuse: None. Illicits: None. . Psychosocial History The patient was born and raised in [place], [place], and moved to [place] at the age of 15. She's been twice, . Currently has been in a relationship with Sacha Anupam, significant other. She has 2 daughters, Joy and Valeria. 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 . Spiritual/Cultural Factors The patient has a Church and Congregational background, but has not been connected with any particular anabaptism or clergy in recent years. The family does want a nylon mender visit. . Living Will: Completed, but not made available Health Care Surrogate: Completed, but not made available Health Care Surrogate(s): The family all reports that the patient's daughter Joy was appointed primary HCS, and the significant other, Sacha Bo is secondary. . Documented care wishes: Family reports that the patient told him repeatedly in recent months that she would never want to be resuscitated or kept alive on life support or have artificial nutrition. . Family/friends goals: All of the family and friends request hospice services and 8 transition to comfort only. They understand she likely will only live days. . Ethical and Legal Issues There are no ethical issues that would impact her care or decision-making at this time. The patient lacks capacity for decision making and it is highly unlikely that she will regain that capacity. The family all agrees that daughter Valeria is the primary HCS and a reportedly have HCS paperwork at home. Significant other Sacha is secondary. Physical Exam Vital Signs Date Time Temp Pulse Resp B/P Pulse Ox O2 Delivery O2 Flow Rate FiO2 01/04/17 10:19 96 01/04/17 08:00 98.4 94 21 141/82 95 01/04/17 04:00 97.3 93 18 177/90 96 01/04/17 01:40 87 01/04/17 00:03 96.9 80 20 153/86 97 01/03/17 23:18 81 16 159/78 92 Nasal Cannula 4 01/03/17 19:31 98 20 167/78 93 Room Air 01/03/17 01/04/17 19:00 07:00 Intake Total 900 ml Output Total 900 ml Balance 0 ml IV Total 900 ml Output Urine Total 900 ml # Bowel Movements 0 Exam CONSTITUTIONAL/GENERAL: This is an adequately nourished patient, in no apparent distress. Not responsive. TUBES/LINES/DRAINS: Nasal cannula oxygen, peripheral IV SKIN: No jaundice, rashes, or lesions. Ecchymoses on upper extremities. No wounds seen anteriorly. Skin temperature appropriate. Not diaphoretic. HEAD: Atraumatic. Normocephalic. EYES: Pupils equal and round and reactive. ENT: Nose without bleeding or purulent drainage. NECK: Trachea midline. Supple, nontender. No palpable thyroid enlargement or nodularity. CARDIOVASCULAR: Regular rate and rhythm without murmurs, gallops, or rubs. No JVD. Peripheral pulses symmetric. RESPIRATORY/CHEST: Symmetric, unlabored respirations. Clear to auscultation. Breath sounds equal bilaterally. No wheezes, rales, or rhonchi. GASTROINTESTINAL: Abdomen soft, non-tender, nondistended. No hepato-splenomegaly , or palpable masses. No guarding. Bowel sounds present. GENITOURINARY: Without palpable bladder distension. Bender catheter in place. MUSCULOSKELETAL: Extremities without clubbing, cyanosis, or edema. No joint tenderness or effusion noted. No calf tenderness. No mottling or clubbing. LYMPHATICS: No palpable cervical or supraclavicular adenopathy. NEUROLOGICAL: Does not respond to touch or verbal stimuli. PSYCHIATRIC: Unable to assess due to clinical condition . Diagnostic Tests Laboratory Laboratory Tests Test 01/02/17 01/02/17 01/03/17 10:42 11:15 04:20 White Blood Count 8.5 TH/MM3 8.7 TH/MM3 (4.0-11.0) (4.0-11.0) Red Blood Count 4.71 MIL/MM3 4.79 MIL/MM3 (4.00-5.30) (4.00-5.30) Hemoglobin 14.7 GM/DL 15.1 GM/DL (11.6-15.3) (11.6-15.3) Bedside Hemoglobin 15.0 G/DL (12.0-17.0) Hematocrit 43.5 % 43.4 % (35.0-46.0) (35.0-46.0) Bedside Hematocrit 44.0 % (38.0-51.0) Mean Corpuscular Volume 92.2 FL 90.5 FL (80.0-100.0) (80.0-100.0) Mean Corpuscular Hemoglobin 31.2 PG 31.4 PG (27.0-34.0) (27.0-34.0) Mean Corpuscular Hemoglobin 33.8 % 34.7 % Concent (32.0-36.0) (32.0-36.0) Red Cell Distribution Width 15.5 % 15.5 % (11.6-17.2) (11.6-17.2) Platelet Count 172 TH/MM3 119 TH/MM3 (150-450) (150-450) Mean Platelet Volume 7.9 FL 8.5 FL (7.0-11.0) (7.0-11.0) Neutrophils (%) (Auto) 83.7 % 74.9 % (16.0-70.0) (16.0-70.0) Lymphocytes (%) (Auto) 7.6 % 11.4 % (9.0-44.0) (9.0-44.0) Monocytes (%) (Auto) 7.4 % (0.0-8.0) 12.1 % (0.0-8.0) Eosinophils (%) (Auto) 1.1 % (0.0-4.0) 1.4 % (0.0-4.0) Basophils (%) (Auto) 0.2 % (0.0-2.0) 0.2 % (0.0-2.0) Neutrophils # (Auto) 7.1 TH/MM3 6.5 TH/MM3 (1.8-7.7) (1.8-7.7) Lymphocytes # (Auto) 0.6 TH/MM3 1.0 TH/MM3 (1.0-4.8) (1.0-4.8) Monocytes # (Auto) 0.6 TH/MM3 1.1 TH/MM3 (0-0.9) (0-0.9) Eosinophils # (Auto) 0.1 TH/MM3 0.1 TH/MM3 (0-0.4) (0-0.4) Basophils # (Auto) 0.0 TH/MM3 0.0 TH/MM3 (0-0.2) (0-0.2) CBC Comment DIFF FINAL DIFF FINAL Differential Comment Bedside Sodium 139 MMOL/L (138-146) Sodium Level 139 MEQ/L 138 MEQ/L (136-145) (136-145) Bedside Potassium 3.5 MMOL/L (3.5-4.9) Potassium Level 3.6 MEQ/L 3.4 MEQ/L (3.5-5.1) (3.5-5.1) Bedside Chloride 98 MMOL/L (98-109) Chloride Level 100 MEQ/L 103 MEQ/L (98-107) (98-107) Carbon Dioxide Level 30.1 MEQ/L 25.1 MEQ/L (21.0-32.0) (21.0-32.0) Anion Gap 9 MEQ/L (5-15) 10 MEQ/L (5-15) Bedside Blood Urea Nitrogen 9 MG/DL (8-26) Blood Urea Nitrogen 9 MG/DL (7-18) 6 MG/DL (7-18) Creatinine 0.72 MG/DL 0.48 MG/DL (0.50-1.00) (0.50-1.00) Bedside Creatinine 0.6 MG/DL (0.6-1.0) Estimat Glomerular Filtration 83 ML/MIN (>89) 133 ML/MIN Rate (>89) Bedside Glucose 168 MG/DL (60-95) Random Glucose 160 MG/DL 113 MG/DL (74-106) (74-106) Calcium Level 8.5 MG/DL 8.4 MG/DL (8.5-10.1) (8.5-10.1) Total Bilirubin 0.4 MG/DL (0.2-1.0) Aspartate Amino Transf 36 U/L (15-37) (AST/SGOT) Alanine Aminotransferase 30 U/L (10-53) (ALT/SGPT) Alkaline Phosphatase 100 U/L (45-117) Total Protein 7.0 GM/DL (6.4-8.2) Albumin 3.4 GM/DL (3.4-5.0) Urine Color YELLOW (YELLW/STRAW) Urine Turbidity CLEAR (CLEAR) Urine pH 6.5 (5.0-8.5) Urine Specific [place] 1.018 (1.002-1.035) Urine Protein TRACE mg/dL (NEG-TRACE) Urine Glucose (UA) NEG mg/dL (NEG) Urine Ketones 10 mg/dL (NEG) Urine Occult Blood NEG (NEG) Urine Nitrite NEG (NEG) Urine Bilirubin NEG (NEG) Urine Urobilinogen LESS THAN 2.0 MG/DL (LESS THAN 2.0) Urine Leukocyte Esterase NEG (NEG) Urine RBC 2 /hpf (0-3) Urine WBC 2 /hpf (0-5) Urine Bacteria RARE /hpf (NONE) Urine Mucus FEW /lpf (OCC) Magnesium Level 2.2 MG/DL (1.5-2.5) Phenytoin (Dilantin) Level 16.8 MCG/ML (10.0-20.0) Result Diagram: 01/03/1741901/03/17419 Imaging Last Impressions Head CT 01/02/17 0000 Signed Impressions: Service Date/Time: Monday, January 02, 2017 10:41 - CONCLUSION: 1. Scattered hyperdense foci throughout the left cerebral hemisphere and right occipital region which most likely represent the previously described leptomeningeal metastatic disease. Clinical correlation is recommended. 2. No new mass effect, midline shift or new extraaxial bleed. Celio Chun MD Chest X-Ray 01/02/17 0000 Signed Impressions: Service Date/Time: Monday, January 02, 2017 12:00 - CONCLUSION: Increase in interstitial edema when compared to the study of 12/28/16. Otis Zamora MD FACR Patient/Family Conference Present at Family Conference: Patient's daughters Joy and Valeria, patient's significant other Sacha, multiple relatives of Sacha and other relatives of the patient, a group total of 13 people. . Family Conference Time (mins): 39 Family Conference Location: Bedside, Consult Room Issues Discussed: * Palliative care role, purpose, approach * Hospice care role, purpose, approach * Additional medical, psychosocial, and spiritual history * Patients general health, functional status, and cognitive changes in the months leading up to the current hospitalization * Patient/family understanding of the current medical problems * Patient/family understanding of prognosis * Patients goals of care as best understood from advance directives and/or conversations and/or values * Current medical treatment options and benefits/burdens of those options * Likely scenarios comparing ongoing aggressive care with a transition to comfort measures only * Questions answered to the best of my ability * Palliative care contact information provided The healthcare surrogate designees and the entire group of family and friends all want to transition to comfort measures at this time, and hospice has been consulted. They understand the patient has chest days to live. . 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 2 daughters. Spiritual: A nylon mender visit has been requested Legal: The patient lacks capacity for decision making and it is highly unlikely that she will regain that capacity. The family all agrees that tom Shaw is the primary HCS and a reportedly have HCS paperwork at home. Significant other Sacha is secondary. Ethical issues impacting care: None. . Important Contacts Patient's daughter Valeria Arevalo Sig Other: Sacha Bo . Prognosis The patient is terminal, and likely has just hours or days to live. She has widely metastatic melanoma. . Code Status: No Code Plan * DO NOT RESUSCITATE * DECISION-MAKING: The patient lacks capacity for decision making and it is highly unlikely that she will regain that capacity. The family all agrees that daughter Valeria is the primary HCS and a reportedly have HCS paperwork at home. Significant other Sacha is secondary. * GOALS: The healthcare surrogate designees and the entire group of family and friends all want to transition to comfort measures at this time, and hospice has been consulted. They understand the patient has chest days to live. * Hospice has been consulted, and arrangements will be made for transfer to the [facility]. Daughter Joy, who was planning on getting next month , is now planning to shift that wedding ceremony to the patient's room at the [facility] today or tomorrow. * SYMPTOMS: We will keep the patient on significant doses of Ativan to hopefully prevent seizure activity. Agitation will be managed with medicines at the Care Center. * Palliative Care will continue to follow the patient during this hospitalization. . Time Spent Total Floor Time (mins): 76 Face to Face Time (mins): 39 >50% Counseling/Coord of Care: Yes (discussed with Drew FUNG, and with RN) Thank you for the opportunity to participate in the care of Ms. Corcoran. Attestation To help prompt me to consider important information that might be impacting today's encounter and assessment, information from prior notes written by myself or my colleagues may have been "brought forward" into today's note. My signature on this note, however, is an attestation that I personally performed the exam, history, and/or decision-making noted today, and, unless otherwise indicated, the interactions with patient, family, and staff as well as the review of records all occurred today. I also attest that the listed assessment and stated plan reflect my best clinical judgment today based on the combination of historical information, prior notes, and today's exam/ interactions. When time spent is documented, it refers only to time spent today by the signer, or if indicated, combined time spent today by collaborating physician/nurse practitioner. Diana Epperson MD Jan 04, 2017 13:12
--- NOTE | 2017-01-04 13:33 | PD.ONC.PN ---
Subjective Subjective Remarks Afebrile overnight. Patient sleeping, multiple family members at bedside. Objective Data Date Time Temp Pulse Resp B/P Pulse Ox O2 Delivery O2 Flow Rate FiO2 01/04/17 10:19 96 01/04/17 08:00 98.4 94 21 141/82 95 01/04/17 04:00 97.3 93 18 177/90 96 01/04/17 01:40 87 01/04/17 00:03 96.9 80 20 153/86 97 01/03/17 23:18 81 16 159/78 92 Nasal Cannula 4 01/03/17 19:31 98 20 167/78 93 Room Air 01/04/17 01/04/17 01/04/17 07:00 15:00 23:00 Intake Total 900 ml 0 ml Output Total 900 ml 500 ml Balance 0 ml -500 ml Result Diagram: 01/03/17 0420 01/03/17 0420 Administered Medications Medications (Trade) Dose Ordered Sig/Andrea Route PRN Reason Start Time Stop Time Status Last Admin Dose Admin Phenytoin Sodium 100 mg 100 mg Q8HR IV 01/02/17 14:00 01/04/17 05:50 Potassium Chloride/Sodium Chloride (NS + KCl 20 Meq Inj) 1,000 ml @ 84 mls/hr [id number] IV 01/03/17 09:00 01/04/17 01:10 Lorazepam (Ativan Inj) 2 mg Q2H PRN IV PUSH AGITATION AND/OR HALLUCINATION 01/03/17 09:00 01/04/17 09:53 Haloperidol Lactate (Haldol Inj) 2 mg Q4H PRN IM AGITATION AND/OR HALLUCINATION 01/03/17 19:45 01/03/17 22:37 Objective Remarks GENERAL: Middle aged female, lying in bed, sleeping on approach. SKIN: Warm and dry. HEAD: Normocephalic. EYES: No injection or drainage. NECK: Supple, trachea midline. CARDIOVASCULAR: +S1/S2 RESPIRATORY: anterior delacruz with occasional rhonchi. GASTROINTESTINAL: Abdomen soft, nondistended. EXTREMITIES: No cyanosis NEUROLOGICAL: sleeping on approach, confused. Assessment/Plan Assessment 56y/o female with metastatic melanoma, admitted with AMS, status epilepticus. Plan 1. patient's family have chosen hospice. she is going to care center this afternoon 2. Ativan/Haldol PRN agitation 3. comfort measures only. Attending Statement The exam, history, and the medical decision-making described in the above note were completed with the assistance of the mid-level provider. I reviewed and agree with the findings presented. I attest that I had a [id number] encounter with the patient on the same day, and personally performed and documented my assessment and findings in the medical record. Transfer to Hospice care today. answered family's questions. Danika Rodriguez Jan 04, 2017 13:33 Harsha Jay MD Jan 04, 2017 21:52
[2017-01-04 13:54] LABS: BICARBONATE 23.3 MEQ/L (21.0-32.0); POTASSIUM 3.7 MEQ/L (3.5-5.1)
== END 2017-01-04 15:04 | disposition hospice, inpatient (51) | DRG 100 ==
LOC: NEPA 10:34 → NEDA 11:49 → NEDH 19:14 → HOCB 01-03 23:45
PROVIDERS: ADMIT Hospitalist; ATTEND Hospitalist
DX: G40.901 Epilepsy, unspecified, not intractable, with status epilepticus (principal); G93.40 Encephalopathy, unspecified; I47.2 Ventricular tachycardia; C78.00 Secondary malignant neoplasm of unspecified lung; C78.7 Secondary malignant neoplasm of liver and intrahepatic bile duct; C79.51 Secondary malignant neoplasm of bone; C79.32 Secondary malignant neoplasm of cerebral meninges; C79.89 Secondary malignant neoplasm of other specified sites; J98.11 Atelectasis; C43.9 Malignant melanoma of skin, unspecified; Z85.820 Personal history of malignant melanoma of skin; E78.5 Hyperlipidemia, unspecified; I49.3 Ventricular premature depolarization; Z51.5 Encounter for palliative care; Z66 Do not resuscitate; Z78.1 Physical restraint status; Z87.01 Personal history of pneumonia (recurrent); Z98.82 Breast implant status
CPT/HCPCS: 36561; 36590; 70450; 70553; 71010; 71020; 76937; 77001; 80048; 80053; 80185; 81001; 82435; 82565; 82947; 83735; 84132; 84295; 84520; 85025; 85610; 85730; 93005; 95819; 96365; 96375; 99152; 99153; A9579; C1788; G0378; J0690; J1165; J1200; J1630; J1642; J2060; J2250; J2270; J2405; J3010; J3370; J3480; J7030; J7050